=== PATIENT | female | born 1945 | race Caucasian/White ===

== ENCOUNTER 2017-05-15 08:08 | Inpatient (IN) | payer MEDICARE, MEDICAID ==
[2017-05-15 09:06] LABS: ADD MAN DIFF? NO
[2017-05-15 09:15] LABS: ADD UMIC YES; UR ASCORBIC ACID NEGATIVE (NEGATIVE); UR BILIRUBIN (Dip) NEGATIVE (NEGATIVE); UR BLOOD (Dip) NEGATIVE (NEGATIVE); UR CLARITY SLIGHTLY CLOUDY (CLEAR); UR COLOR AMBER (YELLOW); UR GLUCOSE (Dip) NEGATIVE (NEGATIVE); UR KETONES (Dip) NEGATIVE (NEGATIVE); UR LEUKOCYTE ESTERASE (Dip) TRACE Leu/ul (NEGATIVE); UR MUCUS MODERATE /HPF (NONE SEEN); UR NITRITE (Dip) NEGATIVE (NEGATIVE); UR RBC 4 /HPF (0-5); UR SPECIFIC GRAVITY (Dip) 1.021 (1.003-1.030); UR SQUAMOUS EPITHELIAL CELL MODERATE /HPF (FEW); UR TOTAL PROTEIN (Dip) NEGATIVE (NEGATIVE); UR UROBILINOGEN (Dip) 2+ mg/dL (NEGATIVE); UR WBC 3 /HPF (0-5)
[2017-05-15 09:17] LABS: ABNORMAL IP MESSAGE 1; BASOPHILS % 0.8 % (0.0-2.0); EOSINOPHILS # 0.1 10^3/ul (0.0-0.5); EOSINOPHILS % 2.3 % (0.0-7.0); HEMATOCRIT 42.1 % (37.0-47.0); HEMOGLOBIN 14.6 g/dl (12.0-16.0); LYMPHOCYTES # 2.1 10^3/ul (0.8-2.9); LYMPHOCYTES % 54.1 % (15.0-51.0); MEAN CORPUSCULAR HEMOGLOBIN 34.4 pg (29.0-33.0); MEAN CORPUSCULAR HGB CONC 34.7 g/dl (32.0-37.0); MEAN CORPUSCULAR VOLUME 99.3 fl (82.0-101.0); MEAN PLATELET VOLUME 11.9 fl (7.4-10.4); MONOCYTE # 0.3 10^3/ul (0.3-0.9); MONOCYTES % 8.5 % (0.0-11.0); NEUTROPHIL # 1.3 10^3/ul (1.6-7.5); NEUTROPHILS % 34.3 % (39.0-77.0); PLATELET COUNT 80 10^3/UL (140-415); RED BLOOD COUNT 4.24 10^6/ul (4.20-5.40); RED CELL DISTRIBUTION WIDTH 14.7 % (11.5-14.5)
[2017-05-15 09:17] LABS: WHITE BLOOD COUNT 3.9 10^3/ul (4.8-10.8)
[2017-05-15 09:22] LABS: POSITIVE DIFF @See below
[2017-05-15 09:30] LABS: ALANINE AMINOTRANSFERASE 456 IU/L (13-69); ALBUMIN 2.6 g/dl (3.3-4.9); ALBUMIN/GLOBULIN RATIO 0.57; ALKALINE PHOSPHATASE 177 IU/L (42-121); ANION GAP 11 (8-16); ASPARTATE AMINO TRANSFERASE 455 IU/L (15-46); BILIRUBIN,INDIRECT 1.9 mg/dl (0-1.1); BILIRUBIN,TOTAL 1.9 mg/dl (0.2-1.3); BLOOD UREA NITROGEN 9 mg/dl (7-20); CALCIUM 7.9 mg/dl (8.4-10.2); CARBON DIOXIDE 26 mmol/L (21-31); CHLORIDE 109 mmol/L (97-110); CREATININE 0.58 mg/dl (0.44-1.00); GLUCOSE 140 mg/dl (70-220); LIPASE 147 U/L (23-300); POTASSIUM 3.1 mmol/L (3.5-5.1); SODIUM 143 mmol/L (135-144); TOTAL PROTEIN 7.1 g/dl (6.1-8.1)
[2017-05-15 09:40] LABS: INR 1.95; PROTIME 22.7 Sec (11.9-14.9); PT RATIO 1.8
[2017-05-15 09:41] LABS: PARTIAL THROMBOPLASTIN TIME 44.3 Sec (25.0-35.0)
[2017-05-15 12:48] LABS: FLD RBC 0 /uL; FLD WBC 145 /cmm
[2017-05-15] MEDS ORDERED: ACETAMINOPHEN 325 MG TAB PO (13:00)
[2017-05-15] MEDS ORDERED: ONDANSETRON 4 MG INJ IV (13:00)
[2017-05-15 13:27] LABS: FLD TYPE ASCITES
[2017-05-15 13:27] LABS: FLD CLARITY CLEAR; FLD COLOR YELLOW
[2017-05-15 13:31] LABS: FLUID GLUCOSE 120 mg/dl; FLUID TYPE ASCITES FLUID
[2017-05-15 13:32] LABS: FLUID AMYLASE < 30 U/L; FLUID LD 200 U/L; FLUID TOTAL PROTEIN < 2.0 g/dl; FLUID TYPE ASCITES FLUID; FLUID TYPE ASCITIES FLUID
[2017-05-15 13:40] LABS: FLD MN% 90.3 %; FLD PMN% 9.7 %
[2017-05-15 14:56] LABS: HAAIG REFLEX REFLEX FILED
[2017-05-15] MEDS ORDERED: MAGNESIUM HYDROXIDE 30ML CUP PO (15:00)
[2017-05-15] MEDS ORDERED: BISACODYL 10 MG SUPP PR (15:00)
[2017-05-15] MEDS ORDERED: NACL 0.9% 3 ML SYG IV (15:00)
[2017-05-15] MEDS ORDERED: DOCUSATE SODIUM 100 MG CAP PO (15:00)
[2017-05-15 15:56] LABS: HEPATITIS B SURFACE ANTIGEN NEGATIVE (NEGATIVE)
[2017-05-15 16:14] LABS: HEPATITIS B CORE ANTIBODY NEGATIVE (NEGATIVE); HEPATITIS C VIRAL ANTIBODY NEGATIVE (NEGATIVE)
[2017-05-15 17:06] LABS: CARCINOEMBRYONIC ANTIGEN 2.2 ng/ml (0.0-5.0)
[2017-05-15 17:07] LABS: CANCER ANTIGEN 19-9 43.4 U/ml (0.0-37.0)
[2017-05-15] MEDS: POTASSIUM CHLORIDE (SR) 20 MEQ TAB PO (18:36)
[2017-05-15 19:09] LABS: MAGNESIUM 1.6 mg/dl (1.7-2.5)
[2017-05-16] MEDS: PANTOPRAZOLE 40 MG INJ IV (05:52)
[2017-05-16 05:57] LABS: ADD MAN DIFF? NO
[2017-05-16 06:09] LABS: WHITE BLOOD COUNT 4.5 10^3/ul (4.8-10.8)
[2017-05-16 06:09] LABS: ABNORMAL IP MESSAGE 1; BASOPHILS % 0.7 % (0.0-2.0); EOSINOPHILS # 0.1 10^3/ul (0.0-0.5); EOSINOPHILS % 2.7 % (0.0-7.0); HEMATOCRIT 36.5 % (37.0-47.0); HEMOGLOBIN 13.1 g/dl (12.0-16.0); LYMPHOCYTES # 2.1 10^3/ul (0.8-2.9); MEAN CORPUSCULAR HEMOGLOBIN 35.3 pg (29.0-33.0); MEAN CORPUSCULAR HGB CONC 35.9 g/dl (32.0-37.0); MEAN CORPUSCULAR VOLUME 98.4 fl (82.0-101.0); MEAN PLATELET VOLUME 12.1 fl (7.4-10.4); MONOCYTE # 0.5 10^3/ul (0.3-0.9); MONOCYTES % 10.7 % (0.0-11.0); NEUTROPHIL # 1.7 10^3/ul (1.6-7.5); NEUTROPHILS % 38.7 % (39.0-77.0); PLATELET COUNT 70 10^3/UL (140-415); RED BLOOD COUNT 3.71 10^6/ul (4.20-5.40); RED CELL DISTRIBUTION WIDTH 14.6 % (11.5-14.5)
[2017-05-16 06:28] LABS: ALANINE AMINOTRANSFERASE 366 IU/L (13-69); ALBUMIN 2.1 g/dl (3.3-4.9); ALBUMIN/GLOBULIN RATIO 0.53; ALKALINE PHOSPHATASE 116 IU/L (42-121); ANION GAP 10 (8-16); ASPARTATE AMINO TRANSFERASE 350 IU/L (15-46); BILIRUBIN,INDIRECT 1.5 mg/dl (0-1.1); BILIRUBIN,TOTAL 1.5 mg/dl (0.2-1.3); BLOOD UREA NITROGEN 9 mg/dl (7-20); CALCIUM 7.4 mg/dl (8.4-10.2); CARBON DIOXIDE 23 mmol/L (21-31); CHLORIDE 114 mmol/L (97-110); CHOL/HDL RATIO 2.3 RATIO; CHOLESTEROL 74 mg/dl (100-200); CREATININE 0.57 mg/dl (0.44-1.00); GLUCOSE 84 mg/dl (70-220); HDL CHOLESTEROL 32 mg/dl (33-92); LDL CHOLESTEROL,CALCULATED 33 mg/dl; MAGNESIUM 1.7 mg/dl (1.7-2.5); PHOSPHORUS 3.2 mg/dl (2.5-4.9); POTASSIUM 3.7 mmol/L (3.5-5.1); SODIUM 143 mmol/L (135-144); TRIGLYCERIDES 44 mg/dl (0-149)
[2017-05-16 06:47] LABS: POSITIVE DIFF @See below
[2017-05-16 07:40] LABS: HEMOGLOBIN A1C 4.9 % (0-5.9)
[2017-05-16 08:03] LABS: FREE THYROXINE INDEX (Calc) 3.31 ug/ml (0.65-3.89); T3 UPTAKE 41.9 % (23.5-40.5); T4 (THYROXINE) 7.9 ug/dl (5.5-11.0)
[2017-05-16 08:04] LABS: THYROID STIMULATING HORMONE 0.961 MIU/L (0.465-4.680)
[2017-05-16] MEDS ORDERED: FUROSEMIDE 20 MG INJ IV (09:00)
[2017-05-16 18:31] LABS: IRON 134 ug/dl (35-150)
[2017-05-16 18:41] LABS: % IRON SATURATION 66 % SAT (22-52); TOTAL IRON BINDING CAPACITY 202 ug/dl (241-421)
[2017-05-16] MEDS: ACETAMINOPHEN 325 MG TAB PO (18:59)
[2017-05-16] MEDS: SPIRONOLACTONE 25 MG TAB PO (18:59)
[2017-05-16] MEDS: IOHEXOL 300MG/ML 150 ML BTL (23:23)
[2017-05-16] MEDS: SOD CHLORIDE 0.9% 100 ML (23:23)
[2017-05-17] MEDS: PANTOPRAZOLE 40 MG INJ IV (05:17)
[2017-05-17] MEDS: SPIRONOLACTONE 25 MG TAB PO ×2 (05:17→17:44)
[2017-05-17] MEDS ORDERED: LORAZEPAM 2 MG INJ IV (07:30)
[2017-05-17] MEDS: LORAZEPAM 2 MG INJ IV (07:54)
[2017-05-17 12:31] LABS: ALANINE AMINOTRANSFERASE 370 IU/L (13-69); ALBUMIN 2.1 g/dl (3.3-4.9); ALBUMIN/GLOBULIN RATIO 0.56; ALKALINE PHOSPHATASE 107 IU/L (42-121); ANION GAP 10 (8-16); ASPARTATE AMINO TRANSFERASE 383 IU/L (15-46); BILIRUBIN,INDIRECT 1.8 mg/dl (0-1.1); BILIRUBIN,TOTAL 1.8 mg/dl (0.2-1.3); BLOOD UREA NITROGEN 12 mg/dl (7-20); CALCIUM 7.5 mg/dl (8.4-10.2); CARBON DIOXIDE 22 mmol/L (21-31); CHLORIDE 114 mmol/L (97-110); CREATININE 0.54 mg/dl (0.44-1.00); GLUCOSE 80 mg/dl (70-220); POTASSIUM 4.1 mmol/L (3.5-5.1); SODIUM 142 mmol/L (135-144); TOTAL PROTEIN 5.8 g/dl (6.1-8.1)
[2017-05-17] MEDS: FUROSEMIDE 40 MG TAB PO (15:07)
[2017-05-18] MEDS: SPIRONOLACTONE 25 MG TAB PO (05:41)
[2017-05-18] MEDS: PANTOPRAZOLE 40 MG INJ IV (05:43)
[2017-05-18 06:24] LABS: ALANINE AMINOTRANSFERASE 349 IU/L (13-69); ALBUMIN 2.1 g/dl (3.3-4.9); ALBUMIN/GLOBULIN RATIO 0.56; ALKALINE PHOSPHATASE 98 IU/L (42-121); ANION GAP 11 (8-16); ASPARTATE AMINO TRANSFERASE 340 IU/L (15-46); BILIRUBIN,INDIRECT 1.4 mg/dl (0-1.1); BILIRUBIN,TOTAL 1.4 mg/dl (0.2-1.3); BLOOD UREA NITROGEN 14 mg/dl (7-20); CALCIUM 7.5 mg/dl (8.4-10.2); CARBON DIOXIDE 22 mmol/L (21-31); CHLORIDE 112 mmol/L (97-110); CREATININE 0.65 mg/dl (0.44-1.00); GLUCOSE 75 mg/dl (70-220); SODIUM 141 mmol/L (135-144); TOTAL PROTEIN 5.8 g/dl (6.1-8.1)
[2017-05-18] MEDS: FUROSEMIDE 40 MG TAB PO (08:54)
[2017-05-18 14:07] LABS: SMOOTH MUSCLE AB SCREEN POSITIVE (NEGATIVE)
[2017-05-18 16:16] LABS: ALPHA 1 ANTITRYPSIN 119 mg/dL (83-199); CERULOPLASMIN 22 mg/dL (18-53)
[2017-05-18] MEDS: morphine 2 MG INJ IV (20:31)
[2017-05-18 20:43] LABS: ANA SCREEN POSITIVE (NEGATIVE)
[2017-05-18 22:06] LABS: ANA PATTERN HOMOGENEOUS
[2017-05-19] MEDS: SPIRONOLACTONE 25 MG TAB PO ×2 (06:00→18:21)
[2017-05-19] MEDS: PANTOPRAZOLE 40 MG INJ IV (06:20)
[2017-05-19 06:29] LABS: ALANINE AMINOTRANSFERASE 336 IU/L (13-69); ALBUMIN 2.2 g/dl (3.3-4.9); ALBUMIN/GLOBULIN RATIO 0.59; ALKALINE PHOSPHATASE 105 IU/L (42-121); ANION GAP 11 (8-16); ASPARTATE AMINO TRANSFERASE 322 IU/L (15-46); BILIRUBIN,INDIRECT 1.4 mg/dl (0-1.1); BILIRUBIN,TOTAL 1.4 mg/dl (0.2-1.3); BLOOD UREA NITROGEN 13 mg/dl (7-20); CALCIUM 7.5 mg/dl (8.4-10.2); CARBON DIOXIDE 24 mmol/L (21-31); CHLORIDE 110 mmol/L (97-110); CREATININE 0.63 mg/dl (0.44-1.00); GLUCOSE 86 mg/dl (70-220); SODIUM 141 mmol/L (135-144); TOTAL PROTEIN 5.9 g/dl (6.1-8.1)
[2017-05-19] MEDS: FUROSEMIDE 40 MG TAB PO (09:41)
[2017-05-20] MEDS: PANTOPRAZOLE 40 MG INJ IV (05:39)
[2017-05-20] MEDS: SPIRONOLACTONE 25 MG TAB PO ×2 (05:43→17:40)
[2017-05-20 06:53] LABS: PARTIAL THROMBOPLASTIN TIME 43.6 Sec (25.0-35.0)
[2017-05-20 07:33] LABS: ALANINE AMINOTRANSFERASE 331 IU/L (13-69); ALBUMIN 2.2 g/dl (3.3-4.9); ALBUMIN/GLOBULIN RATIO 0.57; ALKALINE PHOSPHATASE 120 IU/L (42-121); ANION GAP 11 (8-16); ASPARTATE AMINO TRANSFERASE 295 IU/L (15-46); BILIRUBIN,INDIRECT 1.5 mg/dl (0-1.1); BILIRUBIN,TOTAL 1.5 mg/dl (0.2-1.3); BLOOD UREA NITROGEN 8 mg/dl (7-20); CALCIUM 7.7 mg/dl (8.4-10.2); CARBON DIOXIDE 25 mmol/L (21-31); CHLORIDE 109 mmol/L (97-110); GLUCOSE 79 mg/dl (70-220); POTASSIUM 3.6 mmol/L (3.5-5.1); SODIUM 141 mmol/L (135-144)
[2017-05-20 08:02] LABS: 50/50 PTT IMMED 34.3 Sec
[2017-05-20 08:16] LABS: CHOLESTEROL 81 mg/dl (100-200)
[2017-05-20 08:16] LABS: CHOL/HDL RATIO 2.3 RATIO; HDL CHOLESTEROL 34 mg/dl (33-92); LDL CHOLESTEROL,CALCULATED 37 mg/dl; TRIGLYCERIDES 48 mg/dl (0-149)
[2017-05-20] MEDS: FUROSEMIDE 40 MG TAB PO (08:31)
[2017-05-20 17:33] LABS: IMMUNOGLOBULIN A 672 mg/dl (70-400); IMMUNOGLOBULIN G 2362 mg/dl (700-1600)
[2017-05-20 17:46] LABS: IMMUNOGLOBULIN M 137 mg/dl (40-230)
[2017-05-21 05:32] LABS: ALANINE AMINOTRANSFERASE 347 IU/L (13-69); ALBUMIN 2.1 g/dl (3.3-4.9); ALBUMIN/GLOBULIN RATIO 0.52; ALKALINE PHOSPHATASE 105 IU/L (42-121); ANION GAP 11 (8-16); ASPARTATE AMINO TRANSFERASE 304 IU/L (15-46); BILIRUBIN,INDIRECT 1.7 mg/dl (0-1.1); BILIRUBIN,TOTAL 1.7 mg/dl (0.2-1.3); BLOOD UREA NITROGEN 8 mg/dl (7-20); CALCIUM 7.9 mg/dl (8.4-10.2); CARBON DIOXIDE 25 mmol/L (21-31); CHLORIDE 108 mmol/L (97-110); CREATININE 0.63 mg/dl (0.44-1.00); GLUCOSE 80 mg/dl (70-220); POTASSIUM 3.7 mmol/L (3.5-5.1); SODIUM 140 mmol/L (135-144); TOTAL PROTEIN 6.1 g/dl (6.1-8.1)
[2017-05-21] MEDS: PANTOPRAZOLE 40 MG INJ IV (05:42)
[2017-05-21] MEDS: SPIRONOLACTONE 25 MG TAB PO ×2 (05:42→17:16)
[2017-05-21] MEDS: FUROSEMIDE 40 MG TAB PO (08:27)
[2017-05-21] MEDS: ONDANSETRON 4 MG INJ IV (19:41)
[2017-05-22] MEDS: PANTOPRAZOLE 40 MG INJ IV (05:07)
[2017-05-22] MEDS: SPIRONOLACTONE 25 MG TAB PO ×2 (05:09→18:36)
[2017-05-22 06:50] LABS: ADD MAN DIFF? NO
[2017-05-22 06:54] LABS: WHITE BLOOD COUNT 4.1 10^3/ul (4.8-10.8)
[2017-05-22 06:54] LABS: ABNORMAL IP MESSAGE 1; BASOPHILS % 0.7 % (0.0-2.0); EOSINOPHILS # 0.1 10^3/ul (0.0-0.5); EOSINOPHILS % 2.7 % (0.0-7.0); HEMATOCRIT 37.3 % (37.0-47.0); HEMOGLOBIN 12.9 g/dl (12.0-16.0); LYMPHOCYTES # 1.9 10^3/ul (0.8-2.9); LYMPHOCYTES % 46.7 % (15.0-51.0); MEAN CORPUSCULAR HEMOGLOBIN 34.5 pg (29.0-33.0); MEAN CORPUSCULAR HGB CONC 34.6 g/dl (32.0-37.0); MEAN CORPUSCULAR VOLUME 99.7 fl (82.0-101.0); MEAN PLATELET VOLUME 12.2 fl (7.4-10.4); MONOCYTE # 0.4 10^3/ul (0.3-0.9); MONOCYTES % 8.8 % (0.0-11.0); NEUTROPHIL # 1.7 10^3/ul (1.6-7.5); NEUTROPHILS % 41.1 % (39.0-77.0); PLATELET COUNT 83 10^3/UL (140-415); RED BLOOD COUNT 3.74 10^6/ul (4.20-5.40); RED CELL DISTRIBUTION WIDTH 14.7 % (11.5-14.5)
[2017-05-22 07:01] LABS: POSITIVE DIFF @See below
[2017-05-22 07:20] LABS: ALANINE AMINOTRANSFERASE 331 IU/L (13-69); ALBUMIN 2.1 g/dl (3.3-4.9); ALBUMIN/GLOBULIN RATIO 0.52; ALKALINE PHOSPHATASE 103 IU/L (42-121); ANION GAP 8 (8-16); ASPARTATE AMINO TRANSFERASE 291 IU/L (15-46); BILIRUBIN,INDIRECT 1.4 mg/dl (0-1.1); BILIRUBIN,TOTAL 1.4 mg/dl (0.2-1.3); BLOOD UREA NITROGEN 11 mg/dl (7-20); CARBON DIOXIDE 22 mmol/L (21-31); CHLORIDE 109 mmol/L (97-110); CREATININE 0.71 mg/dl (0.44-1.00); GLUCOSE 108 mg/dl (70-220); SODIUM 135 mmol/L (135-144); TOTAL PROTEIN 6.1 g/dl (6.1-8.1)
[2017-05-22 07:33] LABS: INR 2.17; PROTIME 24.7 Sec (11.9-14.9); PT RATIO 1.9
[2017-05-22 07:34] LABS: PARTIAL THROMBOPLASTIN TIME 44.9 Sec (25.0-35.0)
[2017-05-22 07:40] LABS: AMMONIA 116 umol/l (9-30)
[2017-05-22 07:44] LABS: MAGNESIUM 1.6 mg/dl (1.7-2.5)
[2017-05-22] MEDS: FUROSEMIDE 40 MG TAB PO (11:07)
[2017-05-22] MEDS: MAGNESIUM SULFATE 2 GM/50 ML 50 ML IVPB (20:55)
[2017-05-22 22:14] LABS: INR 1.53; PROTIME 18.7 Sec (11.9-14.9); PT RATIO 1.5
[2017-05-23] MEDS: SPIRONOLACTONE 25 MG TAB PO ×2 (05:42→18:00)
[2017-05-23] MEDS: PANTOPRAZOLE 40 MG INJ IV (05:43)
[2017-05-23 09:19] LABS: INR 1.73; PROTIME 20.6 Sec (11.9-14.9); PT RATIO 1.6
[2017-05-23] MEDS: FUROSEMIDE 40 MG TAB PO (09:58)
[2017-05-23 15:37] LABS: TYPE AND SCREEN 1 1
[2017-05-23] MEDS: LIDOCAINE 1% (MDV) 20 ML INJ (15:37)
[2017-05-24] MEDS: SPIRONOLACTONE 25 MG TAB PO ×2 (05:26→18:12)
[2017-05-24] MEDS: PANTOPRAZOLE 40 MG INJ IV (05:27)
[2017-05-24] MEDS: FUROSEMIDE 40 MG TAB PO (09:00)
[2017-05-24] MEDS: ONDANSETRON 4 MG INJ IV (13:48)
[2017-05-25 05:53] LABS: ADD MAN DIFF? NO
[2017-05-25 05:59] LABS: ABNORMAL IP MESSAGE 1; BASOPHILS % 0.4 % (0.0-2.0); EOSINOPHILS # 0.1 10^3/ul (0.0-0.5); EOSINOPHILS % 1.6 % (0.0-7.0); HEMATOCRIT 38.5 % (37.0-47.0); HEMOGLOBIN 13.6 g/dl (12.0-16.0); LYMPHOCYTES # 2.4 10^3/ul (0.8-2.9); LYMPHOCYTES % 49.4 % (15.0-51.0); MEAN CORPUSCULAR HEMOGLOBIN 34.8 pg (29.0-33.0); MEAN CORPUSCULAR HGB CONC 35.3 g/dl (32.0-37.0); MEAN CORPUSCULAR VOLUME 98.5 fl (82.0-101.0); MEAN PLATELET VOLUME 12.2 fl (7.4-10.4); MONOCYTE # 0.4 10^3/ul (0.3-0.9); MONOCYTES % 8.3 % (0.0-11.0); NEUTROPHILS % 40.3 % (39.0-77.0); PLATELET COUNT 76 10^3/UL (140-415); RED BLOOD COUNT 3.91 10^6/ul (4.20-5.40); RED CELL DISTRIBUTION WIDTH 14.5 % (11.5-14.5)
[2017-05-25 05:59] LABS: WHITE BLOOD COUNT 4.9 10^3/ul (4.8-10.8)
[2017-05-25] MEDS: PANTOPRAZOLE 40 MG INJ IV (06:00)
[2017-05-25 06:05] LABS: POSITIVE DIFF @See below
[2017-05-25 06:21] LABS: ALANINE AMINOTRANSFERASE 343 IU/L (13-69); ALBUMIN 3.2 g/dl (3.3-4.9); ALBUMIN/GLOBULIN RATIO 0.69; ALKALINE PHOSPHATASE 124 IU/L (42-121); ANION GAP 13 (8-16); ASPARTATE AMINO TRANSFERASE 295 IU/L (15-46); BILIRUBIN,INDIRECT 1.8 mg/dl (0-1.1); BILIRUBIN,TOTAL 1.8 mg/dl (0.2-1.3); BLOOD UREA NITROGEN 11 mg/dl (7-20); CARBON DIOXIDE 23 mmol/L (21-31); CHLORIDE 108 mmol/L (97-110); CREATININE 0.75 mg/dl (0.44-1.00); GLUCOSE 92 mg/dl (70-220); MAGNESIUM 1.6 mg/dl (1.7-2.5); PHOSPHORUS 3.4 mg/dl (2.5-4.9); POTASSIUM 3.8 mmol/L (3.5-5.1); SODIUM 140 mmol/L (135-144); TOTAL PROTEIN 7.8 g/dl (6.1-8.1)
[2017-05-25] MEDS: SPIRONOLACTONE 25 MG TAB PO ×2 (06:22→17:45)
[2017-05-25] MEDS: FUROSEMIDE 40 MG TAB PO (09:00)
[2017-05-25] MEDS: ONDANSETRON 4 MG INJ IV (22:59)
[2017-05-26] MEDS: PANTOPRAZOLE 40 MG INJ IV (06:13)
[2017-05-26] MEDS: SPIRONOLACTONE 25 MG TAB PO ×2 (06:14→17:04)
[2017-05-26] MEDS: FUROSEMIDE 40 MG TAB PO (08:12)
[2017-05-26] MEDS: ONDANSETRON 4 MG INJ IV ×3 (08:13→20:30)
[2017-05-27] MEDS: PANTOPRAZOLE (EC) 40 MG TAB PO (05:40)
[2017-05-27] MEDS: SPIRONOLACTONE 25 MG TAB PO ×2 (05:40→17:51)
[2017-05-27] MEDS: ONDANSETRON 4 MG INJ IV ×3 (05:42→17:51)
[2017-05-27] MEDS: FUROSEMIDE 40 MG TAB PO (09:17)
[2017-05-28] MEDS: PANTOPRAZOLE (EC) 40 MG TAB PO (05:38)
[2017-05-28] MEDS: SPIRONOLACTONE 25 MG TAB PO ×2 (05:39→17:38)
[2017-05-28 06:33] LABS: ADD MAN DIFF? NO
[2017-05-28 06:36] LABS: ABNORMAL IP MESSAGE 1; BASOPHIL # 0.1 10^3/ul (0.0-0.1); BASOPHILS % 0.8 % (0.0-2.0); EOSINOPHILS % 0.5 % (0.0-7.0); HEMATOCRIT 42.3 % (37.0-47.0); HEMOGLOBIN 15.4 g/dl (12.0-16.0); LYMPHOCYTES # 2.3 10^3/ul (0.8-2.9); LYMPHOCYTES % 35.2 % (15.0-51.0); MEAN CORPUSCULAR HEMOGLOBIN 35.4 pg (29.0-33.0); MEAN CORPUSCULAR HGB CONC 36.4 g/dl (32.0-37.0); MEAN CORPUSCULAR VOLUME 97.2 fl (82.0-101.0); MEAN PLATELET VOLUME 11.5 fl (7.4-10.4); MONOCYTE # 0.5 10^3/ul (0.3-0.9); MONOCYTES % 7.4 % (0.0-11.0); NEUTROPHIL # 3.7 10^3/ul (1.6-7.5); NEUTROPHILS % 55.9 % (39.0-77.0); RED BLOOD COUNT 4.35 10^6/ul (4.20-5.40); RED CELL DISTRIBUTION WIDTH 14.6 % (11.5-14.5)
[2017-05-28 06:36] LABS: WHITE BLOOD COUNT 6.6 10^3/ul (4.8-10.8)
[2017-05-28 06:51] LABS: PLATELET COUNT 99 10^3/UL (140-415); POSITIVE DIFF @See below
[2017-05-28 07:02] LABS: INR 1.98; PT RATIO 1.8
[2017-05-28 07:03] LABS: PARTIAL THROMBOPLASTIN TIME 44.4 Sec (25.0-35.0)
[2017-05-28 07:12] LABS: ALANINE AMINOTRANSFERASE 460 IU/L (13-69); ALBUMIN 3.6 g/dl (3.3-4.9); ALBUMIN/GLOBULIN RATIO 0.67; ALKALINE PHOSPHATASE 140 IU/L (42-121); ANION GAP 13 (8-16); ASPARTATE AMINO TRANSFERASE 364 IU/L (15-46); BILIRUBIN,INDIRECT 1.8 mg/dl (0-1.1); BILIRUBIN,TOTAL 1.8 mg/dl (0.2-1.3); BLOOD UREA NITROGEN 12 mg/dl (7-20); CALCIUM 9.4 mg/dl (8.4-10.2); CARBON DIOXIDE 22 mmol/L (21-31); CHLORIDE 104 mmol/L (97-110); CREATININE 0.96 mg/dl (0.44-1.00); GLUCOSE 121 mg/dl (70-220); POTASSIUM 4.4 mmol/L (3.5-5.1); SODIUM 135 mmol/L (135-144); TOTAL PROTEIN 8.9 g/dl (6.1-8.1)
[2017-05-28 07:16] LABS: MAGNESIUM 1.6 mg/dl (1.7-2.5)
[2017-05-28 07:16] LABS: PHOSPHORUS 4.3 mg/dl (2.5-4.9)
[2017-05-28] MEDS: FUROSEMIDE 40 MG TAB PO (08:37)
[2017-05-28] MEDS: predniSONE 20 MG TAB PO (13:08)
[2017-05-28 20:13] LABS: AMMONIA 126 umol/l (9-30)
[2017-05-28] MEDS: LACTULOSE 30ML CUP PO (23:53)
[2017-05-29 01:57] LABS: LACTIC ACID 2.7 mmol/L (0.5-2.0)
[2017-05-29] MEDS: PANTOPRAZOLE (EC) 40 MG TAB PO (05:51)
[2017-05-29] MEDS: LACTULOSE 30ML CUP PO ×2 (05:51→13:46)
[2017-05-29] MEDS: SPIRONOLACTONE 25 MG TAB PO ×2 (05:52→18:00)
[2017-05-29] MEDS ORDERED: predniSONE 20 MG TAB PO (09:00)
[2017-05-29] MEDS: predniSONE 20 MG TAB PO (10:30)
[2017-05-29] MEDS: FUROSEMIDE 40 MG TAB PO (10:52)
[2017-05-29 11:28] LABS: ALANINE AMINOTRANSFERASE 395 IU/L (13-69); ALBUMIN 3.7 g/dl (3.3-4.9); ALBUMIN/GLOBULIN RATIO 0.71; ALKALINE PHOSPHATASE 131 IU/L (42-121); ANION GAP 19 (8-16); ASPARTATE AMINO TRANSFERASE 230 IU/L (15-46); BILIRUBIN,INDIRECT 2.2 mg/dl (0-1.1); BILIRUBIN,TOTAL 2.2 mg/dl (0.2-1.3); BLOOD UREA NITROGEN 20 mg/dl (7-20); CALCIUM 9.2 mg/dl (8.4-10.2); CARBON DIOXIDE 19 mmol/L (21-31); CHLORIDE 106 mmol/L (97-110); CREATININE 0.89 mg/dl (0.44-1.00); GLUCOSE 157 mg/dl (70-220); POTASSIUM 4.7 mmol/L (3.5-5.1); SODIUM 139 mmol/L (135-144); TOTAL PROTEIN 8.9 g/dl (6.1-8.1)
[2017-05-29 12:03] LABS: LACTIC ACID 3.3 mmol/L (0.5-2.0)
[2017-05-29] MEDS: SOD CHLORIDE 0.9% 1,000 ML IV ×2 (13:49→22:07)
[2017-05-29 13:55] LABS: ADD MAN DIFF? NO
[2017-05-29 13:58] LABS: WHITE BLOOD COUNT 8.9 10^3/ul (4.8-10.8)
[2017-05-29 13:58] LABS: BASOPHILS % 0.2 % (0.0-2.0); HEMATOCRIT 43.6 % (37.0-47.0); HEMOGLOBIN 15.5 g/dl (12.0-16.0); LYMPHOCYTES # 1.5 10^3/ul (0.8-2.9); LYMPHOCYTES % 16.9 % (15.0-51.0); MEAN CORPUSCULAR HGB CONC 35.6 g/dl (32.0-37.0); MEAN CORPUSCULAR VOLUME 98.4 fl (82.0-101.0); MEAN PLATELET VOLUME 10.8 fl (7.4-10.4); MONOCYTE # 0.8 10^3/ul (0.3-0.9); NEUTROPHIL # 6.5 10^3/ul (1.6-7.5); NEUTROPHILS % 73.7 % (39.0-77.0); PLATELET COUNT 104 10^3/UL (140-415); RED BLOOD COUNT 4.43 10^6/ul (4.20-5.40)
[2017-05-29 14:00] LABS: POSITIVE DIFF @See below
[2017-05-29 14:21] LABS: AMMONIA 151 umol/l (9-30)
[2017-05-29 14:23] LABS: ALANINE AMINOTRANSFERASE 385 IU/L (13-69); ALBUMIN 3.6 g/dl (3.3-4.9); ALBUMIN/GLOBULIN RATIO 0.72; ALKALINE PHOSPHATASE 126 IU/L (42-121); ANION GAP 18 (8-16); ASPARTATE AMINO TRANSFERASE 215 IU/L (15-46); BILIRUBIN,INDIRECT 1.9 mg/dl (0-1.1); BILIRUBIN,TOTAL 1.9 mg/dl (0.2-1.3); BLOOD UREA NITROGEN 21 mg/dl (7-20); CALCIUM 9.2 mg/dl (8.4-10.2); CARBON DIOXIDE 20 mmol/L (21-31); CHLORIDE 105 mmol/L (97-110); CREATININE 0.87 mg/dl (0.44-1.00); GLUCOSE 161 mg/dl (70-220); POTASSIUM 4.8 mmol/L (3.5-5.1); SODIUM 138 mmol/L (135-144); TOTAL PROTEIN 8.6 g/dl (6.1-8.1)
[2017-05-29 15:12] LABS: Allen Test ACCEPTAB; Arterial Base Excess -1.1 mmol/L (-3.0-3); Arterial COHb 0.2 % (0.0-3.0); Arterial Fraction of Oxyhgb 96.5 % (93.0-99.0); Arterial HCO3 21.1 mmol/L (22.0-26.0); Arterial MetHb 0.3 % (0.0-1.5); Arterial Total Hemglobin 16.3 g/dl (12.0-18.0); Arterial pCO2 29.2 mmhg (35-45); MODE ROOM AIR; Site Left Radial
[2017-05-29] MEDS: CEFEPIME 2GM/50 ML (PMX) 50 ML IVPB ×2 (15:12→22:11)
[2017-05-29] MEDS: SOD CHLORIDE 0.9% 500 ML IV (15:56)
[2017-05-29] MEDS: SOD CHLORIDE 0.9% 1,900 ML IV (16:14)
[2017-05-29] MEDS: LACTULOSE ENEMA 1,000 ML BTL PR ×3 (17:02→23:53)
[2017-05-29] MEDS: RIFAXIMIN 550 MG TAB PO (22:11)
[2017-05-30] MEDS: CEFEPIME 2GM/50 ML (PMX) 50 ML IVPB ×3 (06:02→21:38)
[2017-05-30] MEDS: PANTOPRAZOLE (EC) 40 MG TAB PO (06:03)
[2017-05-30] MEDS: SPIRONOLACTONE 25 MG TAB PO ×2 (06:03→17:04)
[2017-05-30] MEDS: LACTULOSE ENEMA 1,000 ML BTL PR ×3 (06:13→17:04)
[2017-05-30 07:08] LABS: ALANINE AMINOTRANSFERASE 316 IU/L (13-69); ALBUMIN 3.3 g/dl (3.3-4.9); ALBUMIN/GLOBULIN RATIO 0.66; ALKALINE PHOSPHATASE 124 IU/L (42-121); ANION GAP 14 (8-16); ASPARTATE AMINO TRANSFERASE 139 IU/L (15-46); BILIRUBIN,INDIRECT 2.1 mg/dl (0-1.1); BILIRUBIN,TOTAL 2.1 mg/dl (0.2-1.3); BLOOD UREA NITROGEN 16 mg/dl (7-20); CALCIUM 8.7 mg/dl (8.4-10.2); CARBON DIOXIDE 18 mmol/L (21-31); CHLORIDE 112 mmol/L (97-110); CREATININE 0.73 mg/dl (0.44-1.00); GLUCOSE 104 mg/dl (70-220); POTASSIUM 4.1 mmol/L (3.5-5.1); SODIUM 140 mmol/L (135-144); TOTAL PROTEIN 8.3 g/dl (6.1-8.1)
[2017-05-30] MEDS: FUROSEMIDE 40 MG TAB PO (08:55)
[2017-05-30] MEDS: SOD CHLORIDE 0.9% 1,000 ML IV ×3 (08:55→21:39)
[2017-05-30] MEDS: RIFAXIMIN 550 MG TAB PO ×2 (08:55→21:38)
[2017-05-30 11:41] LABS: LACTIC ACID 2.9 mmol/L (0.5-2.0)
[2017-05-30 11:43] LABS: AMMONIA 43 umol/l (9-30)
[2017-05-31] MEDS: LACTULOSE ENEMA 1,000 ML BTL PR ×2 (01:13→06:24)
[2017-05-31] MEDS: CEFEPIME 2GM/50 ML (PMX) 50 ML IVPB ×3 (06:22→21:40)
[2017-05-31] MEDS: PANTOPRAZOLE (EC) 40 MG TAB PO (06:22)
[2017-05-31] MEDS: SPIRONOLACTONE 25 MG TAB PO ×2 (06:24→17:15)
[2017-05-31 06:49] LABS: ALANINE AMINOTRANSFERASE 228 IU/L (13-69); ALBUMIN 2.6 g/dl (3.3-4.9); ALBUMIN/GLOBULIN RATIO 0.63; ALKALINE PHOSPHATASE 92 IU/L (42-121); ANION GAP 14 (8-16); ASPARTATE AMINO TRANSFERASE 103 IU/L (15-46); BILIRUBIN,INDIRECT 2.5 mg/dl (0-1.1); BILIRUBIN,TOTAL 2.5 mg/dl (0.2-1.3); BLOOD UREA NITROGEN 9 mg/dl (7-20); CALCIUM 7.5 mg/dl (8.4-10.2); CARBON DIOXIDE 19 mmol/L (21-31); CHLORIDE 102 mmol/L (97-110); GLUCOSE 137 mg/dl (70-220); POTASSIUM 4.8 mmol/L (3.5-5.1); SODIUM 130 mmol/L (135-144); TOTAL PROTEIN 6.7 g/dl (6.1-8.1)
[2017-05-31] MEDS: FUROSEMIDE 40 MG TAB PO (08:32)
[2017-05-31] MEDS: RIFAXIMIN 550 MG TAB PO ×2 (08:32→21:40)
[2017-05-31] MEDS: LACTULOSE 30ML CUP PO ×3 (10:55→17:14)
[2017-05-31 11:35] LABS: ADD MAN DIFF? NO
[2017-05-31 11:41] LABS: ABNORMAL IP MESSAGE 1; BASOPHILS % 0.3 % (0.0-2.0); EOSINOPHILS % 0.5 % (0.0-7.0); HEMATOCRIT 38.4 % (37.0-47.0); HEMOGLOBIN 13.6 g/dl (12.0-16.0); LYMPHOCYTES # 1.5 10^3/ul (0.8-2.9); LYMPHOCYTES % 24.8 % (15.0-51.0); MEAN CORPUSCULAR HEMOGLOBIN 35.1 pg (29.0-33.0); MEAN CORPUSCULAR HGB CONC 35.4 g/dl (32.0-37.0); MEAN CORPUSCULAR VOLUME 99.2 fl (82.0-101.0); MEAN PLATELET VOLUME 11.8 fl (7.4-10.4); MONOCYTE # 0.9 10^3/ul (0.3-0.9); MONOCYTES % 14.1 % (0.0-11.0); NEUTROPHIL # 3.6 10^3/ul (1.6-7.5); PLATELET COUNT 93 10^3/UL (140-415); RED BLOOD COUNT 3.87 10^6/ul (4.20-5.40); RED CELL DISTRIBUTION WIDTH 14.7 % (11.5-14.5)
[2017-05-31 11:45] LABS: POSITIVE DIFF @See below
[2017-05-31 12:17] LABS: AMMONIA 63 umol/l (9-30)
[2017-05-31] MEDS: SOD CHLORIDE 0.9% 1,000 ML IV ×2 (13:13→15:13)
[2017-06-01] MEDS: LACTULOSE 30ML CUP PO ×4 (00:23→18:12)
[2017-06-01] MEDS: SOD CHLORIDE 0.9% 1,000 ML IV ×2 (00:23→18:11)
[2017-06-01] MEDS: PANTOPRAZOLE (EC) 40 MG TAB PO (06:01)
[2017-06-01] MEDS: CEFEPIME 2GM/50 ML (PMX) 50 ML IVPB ×3 (06:01→22:24)
[2017-06-01] MEDS: SPIRONOLACTONE 25 MG TAB PO ×2 (06:01→18:12)
[2017-06-01 08:26] LABS: ALANINE AMINOTRANSFERASE 215 IU/L (13-69); ALBUMIN 2.6 g/dl (3.3-4.9); ALBUMIN/GLOBULIN RATIO 0.59; ALKALINE PHOSPHATASE 123 IU/L (42-121); ANION GAP 7 (8-16); ASPARTATE AMINO TRANSFERASE 115 IU/L (15-46); BILIRUBIN,INDIRECT 2.6 mg/dl (0-1.1); BILIRUBIN,TOTAL 2.6 mg/dl (0.2-1.3); BLOOD UREA NITROGEN 6 mg/dl (7-20); CARBON DIOXIDE 22 mmol/L (21-31); CHLORIDE 102 mmol/L (97-110); CREATININE 0.54 mg/dl (0.44-1.00); GLUCOSE 97 mg/dl (70-220); POTASSIUM 4.4 mmol/L (3.5-5.1); SODIUM 127 mmol/L (135-144)
[2017-06-01] MEDS: RIFAXIMIN 550 MG TAB PO ×2 (08:43→22:23)
[2017-06-01] MEDS: FUROSEMIDE 40 MG TAB PO (08:43)
[2017-06-01] MEDS: SODIUM CHLORIDE 1 GM TAB PO ×3 (10:43→22:23)
[2017-06-01 11:52] LABS: AMMONIA 49 umol/l (9-30)
[2017-06-01] MEDS: ONDANSETRON 4 MG INJ IV ×2 (12:21→18:14)
[2017-06-01] MEDS: METOCLOPRAMIDE 5 MG TAB PO (14:25)
[2017-06-01] MEDS ORDERED: PROCHLORPERAZINE 10 MG INJ IV (15:00)
[2017-06-01] MEDS: PROCHLORPERAZINE 10 MG INJ IV (22:24)
[2017-06-01] MEDS ORDERED: ONDANSETRON INJ 8 MG in SOD CHLORIDE 0.9% 50 ML IV (23:30)
[2017-06-01] MEDS ORDERED: TRIMETHOBENZAMIDE 100 MG/ML VIAL IM (23:30)
[2017-06-02] MEDS: LACTULOSE 30ML CUP PO ×4 (00:24→17:41)
[2017-06-02] MEDS: PANTOPRAZOLE (EC) 40 MG TAB PO (05:52)
[2017-06-02] MEDS: SPIRONOLACTONE 25 MG TAB PO ×2 (05:53→17:41)
[2017-06-02] MEDS: CEFEPIME 2GM/50 ML (PMX) 50 ML IVPB ×3 (05:53→21:47)
[2017-06-02 06:16] LABS: ALANINE AMINOTRANSFERASE 196 IU/L (13-69); ALBUMIN 2.4 g/dl (3.3-4.9); ALBUMIN/GLOBULIN RATIO 0.53; ALKALINE PHOSPHATASE 103 IU/L (42-121); ANION GAP 10 (8-16); ASPARTATE AMINO TRANSFERASE 107 IU/L (15-46); BILIRUBIN,INDIRECT 2.7 mg/dl (0-1.1); BILIRUBIN,TOTAL 2.7 mg/dl (0.2-1.3); BLOOD UREA NITROGEN 7 mg/dl (7-20); CARBON DIOXIDE 20 mmol/L (21-31); CHLORIDE 107 mmol/L (97-110); CREATININE 0.57 mg/dl (0.44-1.00); GLUCOSE 159 mg/dl (70-220); POTASSIUM 4.4 mmol/L (3.5-5.1); SODIUM 133 mmol/L (135-144); TOTAL PROTEIN 6.9 g/dl (6.1-8.1)
[2017-06-02] MEDS: SODIUM CHLORIDE 1 GM TAB PO ×3 (09:00→21:48)
[2017-06-02] MEDS: RIFAXIMIN 550 MG TAB PO ×2 (09:37→21:48)
[2017-06-02] MEDS: PROCHLORPERAZINE 10 MG INJ IV ×2 (09:38→21:48)
[2017-06-02] MEDS: FUROSEMIDE 40 MG TAB PO (09:38)
[2017-06-02] MEDS: SOD CHLORIDE 0.9% 1,000 ML IV ×2 (09:44→23:42)
[2017-06-03] MEDS: LACTULOSE 30ML CUP PO ×5 (00:49→23:39)
[2017-06-03] MEDS: SOD CHLORIDE 0.9% 1,000 ML IV ×2 (02:29→18:23)
[2017-06-03] MEDS: SPIRONOLACTONE 25 MG TAB PO ×2 (05:50→18:23)
[2017-06-03] MEDS: CEFEPIME 2GM/50 ML (PMX) 50 ML IVPB ×3 (05:50→21:57)
[2017-06-03] MEDS: PANTOPRAZOLE (EC) 40 MG TAB PO (05:51)
[2017-06-03 06:41] LABS: AMMONIA 48 umol/l (9-30)
[2017-06-03 06:56] LABS: ALANINE AMINOTRANSFERASE 168 IU/L (13-69); ALBUMIN 2.2 g/dl (3.3-4.9); ALBUMIN/GLOBULIN RATIO 0.56; ALKALINE PHOSPHATASE 95 IU/L (42-121); ANION GAP 8 (8-16); ASPARTATE AMINO TRANSFERASE 102 IU/L (15-46); BILIRUBIN,INDIRECT 1.6 mg/dl (0-1.1); BILIRUBIN,TOTAL 1.6 mg/dl (0.2-1.3); BLOOD UREA NITROGEN 7 mg/dl (7-20); CALCIUM 7.7 mg/dl (8.4-10.2); CARBON DIOXIDE 22 mmol/L (21-31); CHLORIDE 108 mmol/L (97-110); CREATININE 0.59 mg/dl (0.44-1.00); GLUCOSE 109 mg/dl (70-220); POTASSIUM 4.3 mmol/L (3.5-5.1); SODIUM 134 mmol/L (135-144); TOTAL PROTEIN 6.1 g/dl (6.1-8.1)
[2017-06-03] MEDS: SODIUM CHLORIDE 1 GM TAB PO ×4 (09:00→20:57)
[2017-06-03] MEDS: PROCHLORPERAZINE 10 MG INJ IV ×2 (11:11→20:57)
[2017-06-03] MEDS: RIFAXIMIN 550 MG TAB PO ×2 (11:12→20:57)
[2017-06-03] MEDS: FUROSEMIDE 40 MG TAB PO (11:16)
[2017-06-04] MEDS: CEFEPIME 2GM/50 ML (PMX) 50 ML IVPB ×2 (05:44→14:17)
[2017-06-04] MEDS: LACTULOSE 30ML CUP PO ×3 (05:45→19:17)
[2017-06-04] MEDS: PANTOPRAZOLE (EC) 40 MG TAB PO (05:45)
[2017-06-04] MEDS: SPIRONOLACTONE 25 MG TAB PO ×2 (05:45→19:18)
[2017-06-04 06:19] LABS: ADD MAN DIFF? NO
[2017-06-04 06:41] LABS: ABNORMAL IP MESSAGE 1; BASOPHILS % 0.8 % (0.0-2.0); EOSINOPHILS # 0.1 10^3/ul (0.0-0.5); EOSINOPHILS % 2.4 % (0.0-7.0); HEMATOCRIT 35.1 % (37.0-47.0); HEMOGLOBIN 12.8 g/dl (12.0-16.0); LYMPHOCYTES # 1.4 10^3/ul (0.8-2.9); LYMPHOCYTES % 25.6 % (15.0-51.0); MEAN CORPUSCULAR HEMOGLOBIN 35.5 pg (29.0-33.0); MEAN CORPUSCULAR HGB CONC 36.5 g/dl (32.0-37.0); MEAN CORPUSCULAR VOLUME 97.2 fl (82.0-101.0); MEAN PLATELET VOLUME 11.6 fl (7.4-10.4); MONOCYTE # 0.7 10^3/ul (0.3-0.9); MONOCYTES % 12.2 % (0.0-11.0); NEUTROPHIL # 3.1 10^3/ul (1.6-7.5); NEUTROPHILS % 58.6 % (39.0-77.0); PLATELET COUNT 73 10^3/UL (140-415); RED BLOOD COUNT 3.61 10^6/ul (4.20-5.40); RED CELL DISTRIBUTION WIDTH 14.4 % (11.5-14.5)
[2017-06-04 06:41] LABS: WHITE BLOOD COUNT 5.3 10^3/ul (4.8-10.8)
[2017-06-04 06:50] LABS: AMMONIA 24 umol/l (9-30)
[2017-06-04 07:00] LABS: POSITIVE DIFF @See below
[2017-06-04 07:32] LABS: ALANINE AMINOTRANSFERASE 169 IU/L (13-69); ALBUMIN 2.3 g/dl (3.3-4.9); ALBUMIN/GLOBULIN RATIO 0.56; ALKALINE PHOSPHATASE 118 IU/L (42-121); ANION GAP 8 (8-16); ASPARTATE AMINO TRANSFERASE 103 IU/L (15-46); BILIRUBIN,INDIRECT 1.3 mg/dl (0-1.1); BILIRUBIN,TOTAL 1.3 mg/dl (0.2-1.3); BLOOD UREA NITROGEN 6 mg/dl (7-20); CALCIUM 8.1 mg/dl (8.4-10.2); CARBON DIOXIDE 22 mmol/L (21-31); CHLORIDE 107 mmol/L (97-110); CREATININE 0.53 mg/dl (0.44-1.00); GLUCOSE 98 mg/dl (70-220); POTASSIUM 4.4 mmol/L (3.5-5.1); SODIUM 133 mmol/L (135-144); TOTAL PROTEIN 6.4 g/dl (6.1-8.1)
[2017-06-04] MEDS: SODIUM CHLORIDE 1 GM TAB PO ×2 (09:49→12:26)
[2017-06-04] MEDS: RIFAXIMIN 550 MG TAB PO (09:50)
[2017-06-04] MEDS: PROCHLORPERAZINE 10 MG INJ IV (09:51)
[2017-06-04] MEDS: FUROSEMIDE 40 MG TAB PO (09:53)
[2017-06-04] MEDS: SOD CHLORIDE 0.9% 1,000 ML IV (12:27)
== END 2017-06-04 19:35 | disposition home or self-care (01) | DRG 442 ==
LOC: PP2 12:58 → E/R 08:08
PROC: 0W9G30Z Drainage of Peritoneal Cavity with Drainage Device, Percutaneous Approach (ICD-10-PCS; principal; 2017-05-15)
PROC: 30233K1 Transfusion of Nonautologous Frozen Plasma into Peripheral Vein, Percutaneous Approach (ICD-10-PCS; 2017-05-22)
PROC: 0FB03ZX Excision of Liver, Percutaneous Approach, Diagnostic (ICD-10-PCS; 2017-05-23)
DX: K75.4 Autoimmune hepatitis (principal); E87.2 Acidosis; D68.9 Coagulation defect, unspecified; D69.6 Thrombocytopenia, unspecified; E72.20 Disorder of urea cycle metabolism, unspecified; E87.1 Hypo-osmolality and hyponatremia; J98.11 Atelectasis; K74.69 Other cirrhosis of liver; E80.6 Other disorders of bilirubin metabolism; E87.6 Hypokalemia; R97.8 Other abnormal tumor markers; R11.2 Nausea with vomiting, unspecified
CPT/HCPCS: 36415; 36430; 36600; 71045; 71270; 74176; 74183; 76700; 76830; 76856; 76942; 80053; 80061; 81001; 82103; 82105; 82140; 82150; 82378; 82390; 82525; 82728; 82784; 82787; 82803; 82945; 82962; 83036; 83540; 83605; 83615; 83690; 83735; 84100; 84157; 84436; 84443; 84479; 85025; 85335; 85610; 85730; 86038; 86255; 86301; 86304; 86305; 86704; 86709; 86803; 86850; 86900; 86901; 87040; 87070; 87086; 87102; 87116; 87340; 88104; 88305; 88307; 88313; 89051; 89060; 97110; 97116; 97163; 99285-25

== ENCOUNTER 2017-06-09 22:10 | Inpatient (IN) | payer MEDICARE, MEDICAID ==
[2017-06-09 22:40] LABS: ADD MAN DIFF? NO
[2017-06-09] MEDS: SOD CHLORIDE 0.9% 500 ML IV (22:42)
[2017-06-09 22:43] LABS: BASOPHIL # 0.1 10^3/ul (0.0-0.1); BASOPHILS % 0.8 % (0.0-2.0); EOSINOPHILS # 0.1 10^3/ul (0.0-0.5); EOSINOPHILS % 1.4 % (0.0-7.0); HEMOGLOBIN 15.5 g/dl (12.0-16.0); LYMPHOCYTES # 2.3 10^3/ul (0.8-2.9); LYMPHOCYTES % 35.2 % (15.0-51.0); MEAN CORPUSCULAR HEMOGLOBIN 35.6 pg (29.0-33.0); MEAN CORPUSCULAR VOLUME 98.6 fl (82.0-101.0); MEAN PLATELET VOLUME 11.8 fl (7.4-10.4); MONOCYTE # 0.6 10^3/ul (0.3-0.9); MONOCYTES % 9.5 % (0.0-11.0); NEUTROPHIL # 3.5 10^3/ul (1.6-7.5); NEUTROPHILS % 52.5 % (39.0-77.0); PLATELET COUNT 101 10^3/UL (140-415); RED BLOOD COUNT 4.36 10^6/ul (4.20-5.40); RED CELL DISTRIBUTION WIDTH 16.5 % (11.5-14.5)
[2017-06-09 22:43] LABS: WHITE BLOOD COUNT 6.6 10^3/ul (4.8-10.8)
[2017-06-09 23:12] LABS: INR 2.45; PROTIME 27.2 Sec (11.9-14.9); PT RATIO 2.1
[2017-06-09 23:14] LABS: AMMONIA 195 umol/l (9-30)
[2017-06-10] MEDS ORDERED: NACL 0.9% 3 ML SYG IV (00:30)
[2017-06-10] MEDS ORDERED: ACETAMINOPHEN 325 MG TAB PO (00:30)
[2017-06-10 00:49] LABS: ALANINE AMINOTRANSFERASE 209 IU/L (13-69); ALBUMIN 2.9 g/dl (3.3-4.9); ALBUMIN/GLOBULIN RATIO 0.65; ALKALINE PHOSPHATASE 118 IU/L (42-121); ANION GAP 12 (8-16); ASPARTATE AMINO TRANSFERASE 162 IU/L (15-46); BILIRUBIN,INDIRECT 2.8 mg/dl (0-1.1); BILIRUBIN,TOTAL 2.8 mg/dl (0.2-1.3); BLOOD UREA NITROGEN 16 mg/dl (7-20); CALCIUM 8.4 mg/dl (8.4-10.2); CARBON DIOXIDE 23 mmol/L (21-31); CHLORIDE 106 mmol/L (97-110); CREATININE 0.69 mg/dl (0.44-1.00); GLUCOSE 111 mg/dl (70-220); LIPASE 134 U/L (23-300); POTASSIUM 4.3 mmol/L (3.5-5.1); SODIUM 137 mmol/L (135-144); TOTAL PROTEIN 7.3 g/dl (6.1-8.1)
[2017-06-10 01:03] LABS: TROPONIN-I < 0.012 ng/ml (0.00-0.12)
[2017-06-10] MEDS: LACTULOSE 30ML CUP PO (02:56)
[2017-06-10] MEDS: LACTULOSE ENEMA 1,000 ML BTL PR ×3 (04:20→16:02)
[2017-06-10 05:34] LABS: ADD MAN DIFF? NO
[2017-06-10 05:42] LABS: WHITE BLOOD COUNT 5.9 10^3/ul (4.8-10.8)
[2017-06-10 05:42] LABS: ABNORMAL IP MESSAGE 1; HEMATOCRIT 38.7 % (37.0-47.0); MEAN CORPUSCULAR HEMOGLOBIN 35.9 pg (29.0-33.0); MEAN CORPUSCULAR HGB CONC 36.2 g/dl (32.0-37.0); MEAN CORPUSCULAR VOLUME 99.2 fl (82.0-101.0); MEAN PLATELET VOLUME 10.7 fl (7.4-10.4); RED CELL DISTRIBUTION WIDTH 15.9 % (11.5-14.5)
[2017-06-10 05:45] LABS: PLATELET COUNT 71 10^3/UL (140-415); POSITIVE DIFF @See below
[2017-06-10 06:30] LABS: ALANINE AMINOTRANSFERASE 204 IU/L (13-69); ALBUMIN 2.8 g/dl (3.3-4.9); ALBUMIN/GLOBULIN RATIO 0.63; ALKALINE PHOSPHATASE 107 IU/L (42-121); ANION GAP 12 (8-16); ASPARTATE AMINO TRANSFERASE 157 IU/L (15-46); BLOOD UREA NITROGEN 15 mg/dl (7-20); CALCIUM 8.5 mg/dl (8.4-10.2); CARBON DIOXIDE 21 mmol/L (21-31); CHLORIDE 108 mmol/L (97-110); CREATININE 0.56 mg/dl (0.44-1.00); GLUCOSE 108 mg/dl (70-220); MAGNESIUM 1.8 mg/dl (1.7-2.5); POTASSIUM 4.3 mmol/L (3.5-5.1); SODIUM 137 mmol/L (135-144); TOTAL PROTEIN 7.2 g/dl (6.1-8.1)
[2017-06-10 08:40] LABS: ANISOCYTOSIS 2+ (0-0); BURR CELLS 1+ (0-0); EOSINOPHILS % (M) 1 % (0-7); GIANT THROMBO% (M) 1 % (0-0); LYMPHOCYTES #M 1.1 10^3/ul (0.8-2.9); LYMPHOCYTES % (M) 20 % (15-51); MONOCYTE #M 0.2 10^3/ul (0.3-0.9); MONOCYTES % (M) 4 % (0-11); OVALOCYTES 1+ (0-0); PLATELET ESTIMATE DECREASED; POIKILOCYTOSIS 1+ (0-0); POLYCHROMASIA 1+ (0-0); REACTIVE LYMPHOCYTES% (M) 1 % (0-0); SEGMENTED NEUTROPHILS (M) % 74 % (39-77); SMUDGE%M 23 % (0-0); TARGET CELLS 1+ (0-0)
[2017-06-10] MEDS: METHYLPREDNISOLONE 40 MG INJ IV (09:43)
[2017-06-10 15:34] LABS: TROPONIN-I < 0.012 ng/ml (0.00-0.12)
[2017-06-11] MEDS: PANTOPRAZOLE 40 MG INJ IV (06:10)
[2017-06-11] MEDS: LACTULOSE ENEMA 1,000 ML BTL PR ×2 (06:11)
[2017-06-11] MEDS: METHYLPREDNISOLONE 40 MG INJ IV (08:45)
[2017-06-11 08:53] LABS: ADD MAN DIFF? NO
[2017-06-11 08:57] LABS: ABNORMAL IP MESSAGE 1; BASOPHILS % 0.2 % (0.0-2.0); HEMATOCRIT 42.7 % (37.0-47.0); LYMPHOCYTES # 1.6 10^3/ul (0.8-2.9); LYMPHOCYTES % 15.4 % (15.0-51.0); MEAN CORPUSCULAR HEMOGLOBIN 35.5 pg (29.0-33.0); MEAN CORPUSCULAR HGB CONC 35.1 g/dl (32.0-37.0); MEAN CORPUSCULAR VOLUME 100.9 fl (82.0-101.0); MEAN PLATELET VOLUME 10.6 fl (7.4-10.4); MONOCYTE # 0.8 10^3/ul (0.3-0.9); MONOCYTES % 7.8 % (0.0-11.0); NEUTROPHILS % 76.2 % (39.0-77.0); RED BLOOD COUNT 4.23 10^6/ul (4.20-5.40)
[2017-06-11 08:57] LABS: WHITE BLOOD COUNT 10.5 10^3/ul (4.8-10.8)
[2017-06-11 09:08] LABS: PLATELET COUNT 85 10^3/UL (140-415); POSITIVE DIFF @See below
[2017-06-11 09:24] LABS: AMMONIA 45 umol/l (9-30)
[2017-06-11 09:32] LABS: ALANINE AMINOTRANSFERASE 200 IU/L (13-69); ALBUMIN/GLOBULIN RATIO 0.63; ALKALINE PHOSPHATASE 103 IU/L (42-121); ANION GAP 16 (8-16); ASPARTATE AMINO TRANSFERASE 119 IU/L (15-46); BILIRUBIN,INDIRECT 3.6 mg/dl (0-1.1); BILIRUBIN,TOTAL 3.6 mg/dl (0.2-1.3); BLOOD UREA NITROGEN 22 mg/dl (7-20); CALCIUM 9.3 mg/dl (8.4-10.2); CARBON DIOXIDE 19 mmol/L (21-31); CHLORIDE 110 mmol/L (97-110); CREATININE 0.72 mg/dl (0.44-1.00); GLUCOSE 118 mg/dl (70-220); POTASSIUM 4.6 mmol/L (3.5-5.1); SODIUM 140 mmol/L (135-144); TOTAL PROTEIN 7.7 g/dl (6.1-8.1)
[2017-06-11 10:31] LABS: MAGNESIUM 1.8 mg/dl (1.7-2.5)
[2017-06-11 10:31] LABS: PHOSPHORUS 3.9 mg/dl (2.5-4.9)
[2017-06-11] MEDS: DEXTROSE 5%-LR 1,000 ML IV (11:35)
[2017-06-11] MEDS ORDERED: LORAZEPAM 2 MG INJ IV (12:00)
[2017-06-11] MEDS: LACTULOSE 30ML CUP PO (17:27)
[2017-06-11] MEDS: RIFAXIMIN 550 MG TAB PO (21:01)
[2017-06-12] MEDS: LACTULOSE 30ML CUP PO ×4 (00:12→17:32)
[2017-06-12] MEDS: PANTOPRAZOLE 40 MG INJ IV (06:31)
[2017-06-12] MEDS: METHYLPREDNISOLONE 40 MG INJ IV (08:50)
[2017-06-12] MEDS: RIFAXIMIN 550 MG TAB PO ×2 (08:50→21:45)
[2017-06-12 12:10] LABS: AMMONIA 69 umol/l (9-30)
[2017-06-12 12:16] LABS: ALANINE AMINOTRANSFERASE 174 IU/L (13-69); ALBUMIN 3.2 g/dl (3.3-4.9); ALBUMIN/GLOBULIN RATIO 0.64; ALKALINE PHOSPHATASE 115 IU/L (42-121); ANION GAP 14 (8-16); ASPARTATE AMINO TRANSFERASE 94 IU/L (15-46); BILIRUBIN,INDIRECT 3.6 mg/dl (0-1.1); BILIRUBIN,TOTAL 3.6 mg/dl (0.2-1.3); BLOOD UREA NITROGEN 22 mg/dl (7-20); CALCIUM 9.2 mg/dl (8.4-10.2); CARBON DIOXIDE 21 mmol/L (21-31); CHLORIDE 104 mmol/L (97-110); CREATININE 0.62 mg/dl (0.44-1.00); GLUCOSE 137 mg/dl (70-220); POTASSIUM 4.9 mmol/L (3.5-5.1); SODIUM 134 mmol/L (135-144); TOTAL PROTEIN 8.2 g/dl (6.1-8.1)
[2017-06-12] MEDS: METOCLOPRAMIDE 10 MG INJ IV (21:45)
[2017-06-13] MEDS: LACTULOSE 30ML CUP PO ×4 (00:21→18:08)
[2017-06-13] MEDS: PANTOPRAZOLE 40 MG INJ IV (05:56)
[2017-06-13] MEDS: RIFAXIMIN 550 MG TAB PO ×2 (09:43→21:35)
[2017-06-13] MEDS: METHYLPREDNISOLONE 40 MG INJ IV (09:43)
[2017-06-13 12:45] LABS: AMMONIA 71 umol/l (9-30)
[2017-06-13 12:45] LABS: ALANINE AMINOTRANSFERASE 135 IU/L (13-69); ALBUMIN 2.9 g/dl (3.3-4.9); ALBUMIN/GLOBULIN RATIO 0.63; ALKALINE PHOSPHATASE 107 IU/L (42-121); ANION GAP 13 (8-16); ASPARTATE AMINO TRANSFERASE 61 IU/L (15-46); BILIRUBIN,INDIRECT 2.5 mg/dl (0-1.1); BILIRUBIN,TOTAL 2.5 mg/dl (0.2-1.3); BLOOD UREA NITROGEN 19 mg/dl (7-20); CALCIUM 8.8 mg/dl (8.4-10.2); CARBON DIOXIDE 21 mmol/L (21-31); CHLORIDE 102 mmol/L (97-110); GLUCOSE 243 mg/dl (70-220); SODIUM 132 mmol/L (135-144); TOTAL PROTEIN 7.5 g/dl (6.1-8.1)
[2017-06-14] MEDS: LACTULOSE 30ML CUP PO ×3 (00:30→12:29)
[2017-06-14] MEDS: PANTOPRAZOLE 40 MG INJ IV (06:00)
[2017-06-14] MEDS: METHYLPREDNISOLONE 40 MG INJ IV (09:45)
[2017-06-14] MEDS: RIFAXIMIN 550 MG TAB PO (09:45)
[2017-06-14 10:23] LABS: ALANINE AMINOTRANSFERASE 137 IU/L (13-69); ALBUMIN 3.1 g/dl (3.3-4.9); ALBUMIN/GLOBULIN RATIO 0.67; ALKALINE PHOSPHATASE 122 IU/L (42-121); ANION GAP 15 (8-16); ASPARTATE AMINO TRANSFERASE 69 IU/L (15-46); BILIRUBIN,INDIRECT 2.3 mg/dl (0-1.1); BILIRUBIN,TOTAL 2.3 mg/dl (0.2-1.3); BLOOD UREA NITROGEN 17 mg/dl (7-20); CALCIUM 8.6 mg/dl (8.4-10.2); CARBON DIOXIDE 22 mmol/L (21-31); CHLORIDE 103 mmol/L (97-110); CREATININE 0.62 mg/dl (0.44-1.00); GLUCOSE 119 mg/dl (70-220); POTASSIUM 4.3 mmol/L (3.5-5.1); SODIUM 136 mmol/L (135-144); TOTAL PROTEIN 7.7 g/dl (6.1-8.1)
[2017-06-14 10:39] LABS: AMMONIA 64 umol/l (9-30)
== END 2017-06-14 15:00 | disposition home or self-care (01) | DRG 442 ==
LOC: E/R 06-10 06:47 → MS4 23:58 → E/R 22:10
DX: K72.10 Chronic hepatic failure without coma (principal); I47.2 Ventricular tachycardia; D69.6 Thrombocytopenia, unspecified; K75.4 Autoimmune hepatitis; E86.0 Dehydration
CPT/HCPCS: 36415; 70450; 71045; 76705; 80053; 82140; 83690; 83735; 84100; 84484; 85025; 85610; 87081; 92610; 93005; 97110; 97116; 97162; 97530; 99291-25

== ENCOUNTER 2017-08-11 15:52 | Inpatient (IN) | payer MEDICARE, OTHER, MEDICAID ==
[2017-08-11 17:29] LABS: ADD MAN DIFF? NO
[2017-08-11 17:48] LABS: ALANINE AMINOTRANSFERASE 78 IU/L (13-69); ALBUMIN 3.3 g/dl (3.3-4.9); ALBUMIN/GLOBULIN RATIO 0.82; ALKALINE PHOSPHATASE 150 IU/L (42-121); ANION GAP 16 (8-16); ASPARTATE AMINO TRANSFERASE 60 IU/L (15-46); BILIRUBIN,INDIRECT 3.5 mg/dl (0-1.1); BILIRUBIN,TOTAL 3.5 mg/dl (0.2-1.3); BLOOD UREA NITROGEN 14 mg/dl (7-20); CALCIUM 8.4 mg/dl (8.4-10.2); CARBON DIOXIDE 21 mmol/L (21-31); CHLORIDE 90 mmol/L (97-110); CREATININE 0.72 mg/dl (0.44-1.00); GLUCOSE 187 mg/dl (70-220); SODIUM 121 mmol/L (135-144); TOTAL PROTEIN 7.3 g/dl (6.1-8.1)
[2017-08-11 17:53] LABS: POTASSIUM 5.5 mmol/L (3.5-5.1)
[2017-08-11] MEDS: SOD CHLORIDE 0.9% 1,000 ML IV ×2 (17:54→21:33)
[2017-08-11 18:10] LABS: ABNORMAL IP MESSAGE 1; BASOPHILS % 0.1 % (0.0-2.0); HEMATOCRIT 46.1 % (37.0-47.0); HEMOGLOBIN 17.2 g/dl (12.0-16.0); LYMPHOCYTES # 0.6 10^3/ul (0.8-2.9); LYMPHOCYTES % 7.2 % (15.0-51.0); MEAN CORPUSCULAR HEMOGLOBIN 36.6 pg (29.0-33.0); MEAN CORPUSCULAR HGB CONC 37.3 g/dl (32.0-37.0); MEAN CORPUSCULAR VOLUME 98.1 fl (82.0-101.0); MEAN PLATELET VOLUME 10.5 fl (7.4-10.4); MONOCYTE # 0.5 10^3/ul (0.3-0.9); MONOCYTES % 6.6 % (0.0-11.0); NEUTROPHILS % 84.9 % (39.0-77.0); PLATELET COUNT 98 10^3/UL (140-415); RED CELL DISTRIBUTION WIDTH 13.1 % (11.5-14.5)
[2017-08-11 18:10] LABS: WHITE BLOOD COUNT 8.2 10^3/ul (4.8-10.8)
[2017-08-11 18:13] LABS: POSITIVE DIFF @See below
[2017-08-11] MEDS: ONDANSETRON 4 MG INJ IV (18:53)
[2017-08-11 20:02] LABS: ANION GAP 13 (8-16); BLOOD UREA NITROGEN 12 mg/dl (7-20); CALCIUM 7.6 mg/dl (8.4-10.2); CARBON DIOXIDE 17 mmol/L (21-31); CHLORIDE 97 mmol/L (97-110); CREATININE 0.63 mg/dl (0.44-1.00); GLUCOSE 154 mg/dl (70-220); POTASSIUM 5.2 mmol/L (3.5-5.1); SODIUM 122 mmol/L (135-144)
[2017-08-11] MEDS ORDERED: ACETAMINOPHEN 325 MG TAB PO (21:30)
[2017-08-11] MEDS ORDERED: ONDANSETRON 4 MG INJ IV (21:30)
[2017-08-12] MEDS: SOD CHLORIDE 0.9% 1,000 ML IV ×2 (04:29→14:11)
[2017-08-12] MEDS ORDERED: NACL 0.9% 3 ML SYG IV (04:30)
[2017-08-12] MEDS ORDERED: morphine 2 MG INJ IV (04:30)
[2017-08-12] MEDS ORDERED: ACETAMINOPHEN 325 MG TAB PO (04:30)
[2017-08-12] MEDS ORDERED: ALBUTEROL/IPRATROPIUM (NEB) 3 ML AMP HHN (04:30)
[2017-08-12] MEDS: PANTOPRAZOLE (EC) 40 MG TAB PO (07:20)
[2017-08-12] MEDS: LACTULOSE 30ML CUP PO ×3 (07:20→18:00)
[2017-08-12 07:35] LABS: ADD MAN DIFF? NO
[2017-08-12 07:46] LABS: ABNORMAL IP MESSAGE 1; BASOPHILS % 0.2 % (0.0-2.0); EOSINOPHILS % 0.2 % (0.0-7.0); HEMATOCRIT 42.8 % (37.0-47.0); HEMOGLOBIN 15.8 g/dl (12.0-16.0); LYMPHOCYTES # 1.5 10^3/ul (0.8-2.9); MEAN CORPUSCULAR HEMOGLOBIN 36.4 pg (29.0-33.0); MEAN CORPUSCULAR HGB CONC 36.9 g/dl (32.0-37.0); MEAN CORPUSCULAR VOLUME 98.6 fl (82.0-101.0); MEAN PLATELET VOLUME 10.1 fl (7.4-10.4); MONOCYTE # 0.7 10^3/ul (0.3-0.9); NEUTROPHIL # 6.2 10^3/ul (1.6-7.5); NEUTROPHILS % 72.8 % (39.0-77.0); RED BLOOD COUNT 4.34 10^6/ul (4.20-5.40); RED CELL DISTRIBUTION WIDTH 13.1 % (11.5-14.5)
[2017-08-12 07:46] LABS: WHITE BLOOD COUNT 8.6 10^3/ul (4.8-10.8)
[2017-08-12 07:48] LABS: PLATELET COUNT 82 10^3/UL (140-415); POSITIVE DIFF @See below
[2017-08-12 07:57] LABS: ALANINE AMINOTRANSFERASE 73 IU/L (13-69); ALBUMIN 2.6 g/dl (3.3-4.9); ALBUMIN/GLOBULIN RATIO 0.74; ALKALINE PHOSPHATASE 142 IU/L (42-121); ANION GAP 11 (8-16); ASPARTATE AMINO TRANSFERASE 48 IU/L (15-46); BLOOD UREA NITROGEN 11 mg/dl (7-20); CALCIUM 7.9 mg/dl (8.4-10.2); CARBON DIOXIDE 21 mmol/L (21-31); CHLORIDE 97 mmol/L (97-110); CREATININE 0.57 mg/dl (0.44-1.00); GLUCOSE 80 mg/dl (70-220); POTASSIUM 4.8 mmol/L (3.5-5.1); SODIUM 124 mmol/L (135-144); TOTAL PROTEIN 6.1 g/dl (6.1-8.1)
[2017-08-12 08:02] LABS: OSMOLALITY 254 mOsm/kg (280-295)
[2017-08-12] MEDS: NEOMYCIN 500 MG TAB PO ×3 (08:52→23:00)
[2017-08-12] MEDS: FUROSEMIDE 40 MG TAB PO (08:52)
[2017-08-12] MEDS: SPIRONOLACTONE 50 MG TAB PO ×2 (08:52→18:23)
[2017-08-12 10:22] LABS: AMMONIA 25 umol/l (9-30)
[2017-08-12 16:12] LABS: ANION GAP 13 (8-16); BLOOD UREA NITROGEN 12 mg/dl (7-20); CALCIUM 8.1 mg/dl (8.4-10.2); CARBON DIOXIDE 21 mmol/L (21-31); CHLORIDE 95 mmol/L (97-110); GLUCOSE 121 mg/dl (70-220); POTASSIUM 4.7 mmol/L (3.5-5.1); SODIUM 124 mmol/L (135-144)
[2017-08-13] MEDS: SOD CHLORIDE 0.9% 1,000 ML IV (05:54)
[2017-08-13] MEDS: PANTOPRAZOLE (EC) 40 MG TAB PO (05:54)
[2017-08-13] MEDS: SPIRONOLACTONE 50 MG TAB PO ×2 (05:54→17:37)
[2017-08-13] MEDS: LACTULOSE 30ML CUP PO ×4 (05:54→17:36)
[2017-08-13 07:38] LABS: ADD MAN DIFF? NO
[2017-08-13 08:17] LABS: ANION GAP 13 (8-16); BLOOD UREA NITROGEN 10 mg/dl (7-20); CALCIUM 8.5 mg/dl (8.4-10.2); CARBON DIOXIDE 18 mmol/L (21-31); CHLORIDE 95 mmol/L (97-110); CREATININE 0.64 mg/dl (0.44-1.00); GLUCOSE 84 mg/dl (70-220); MAGNESIUM 1.6 mg/dl (1.7-2.5); PHOSPHORUS 3.8 mg/dl (2.5-4.9); POTASSIUM 5.2 mmol/L (3.5-5.1); SODIUM 121 mmol/L (135-144)
[2017-08-13] MEDS: FUROSEMIDE 40 MG TAB PO (08:28)
[2017-08-13] MEDS: NEOMYCIN 500 MG TAB PO ×3 (08:28→21:42)
[2017-08-13 09:01] LABS: ABNORMAL IP MESSAGE 1; BASOPHILS % 0.4 % (0.0-2.0); EOSINOPHILS % 0.3 % (0.0-7.0); HEMATOCRIT 45.4 % (37.0-47.0); HEMOGLOBIN 16.9 g/dl (12.0-16.0); LYMPHOCYTES # 1.7 10^3/ul (0.8-2.9); LYMPHOCYTES % 23.9 % (15.0-51.0); MEAN CORPUSCULAR HEMOGLOBIN 37.1 pg (29.0-33.0); MEAN CORPUSCULAR HGB CONC 37.2 g/dl (32.0-37.0); MEAN CORPUSCULAR VOLUME 99.8 fl (82.0-101.0); MEAN PLATELET VOLUME 10.1 fl (7.4-10.4); MONOCYTE # 0.6 10^3/ul (0.3-0.9); MONOCYTES % 8.1 % (0.0-11.0); NEUTROPHIL # 4.7 10^3/ul (1.6-7.5); NEUTROPHILS % 66.6 % (39.0-77.0); PLATELET COUNT 73 10^3/UL (140-415); POSITIVE DIFF @See below; RED BLOOD COUNT 4.55 10^6/ul (4.20-5.40); RED CELL DISTRIBUTION WIDTH 13.2 % (11.5-14.5)
[2017-08-13] MEDS: MAGNESIUM SULFATE 2 GM/50 ML 50 ML IVPB (09:26)
[2017-08-13 11:02] LABS: URIC ACID 3.6 mg/dl (3.1-7.9)
[2017-08-13 12:55] LABS: ANION GAP 11 (8-16); BLOOD UREA NITROGEN 12 mg/dl (7-20); CALCIUM 8.2 mg/dl (8.4-10.2); CARBON DIOXIDE 20 mmol/L (21-31); CHLORIDE 95 mmol/L (97-110); CREATININE 0.67 mg/dl (0.44-1.00); GLUCOSE 115 mg/dl (70-220); POTASSIUM 4.7 mmol/L (3.5-5.1); SODIUM 121 mmol/L (135-144)
[2017-08-13] MEDS: ONDANSETRON 4 MG INJ IV ×2 (17:39→21:41)
[2017-08-13 20:02] LABS: ANION GAP 15 (8-16); BLOOD UREA NITROGEN 13 mg/dl (7-20); CALCIUM 8.3 mg/dl (8.4-10.2); CARBON DIOXIDE 18 mmol/L (21-31); CHLORIDE 96 mmol/L (97-110); CREATININE 0.81 mg/dl (0.44-1.00); GLUCOSE 102 mg/dl (70-220); POTASSIUM 4.8 mmol/L (3.5-5.1); SODIUM 124 mmol/L (135-144)
[2017-08-14] MEDS: LACTULOSE 30ML CUP PO ×4 (06:00→17:56)
[2017-08-14] MEDS: SPIRONOLACTONE 50 MG TAB PO ×2 (06:27→17:57)
[2017-08-14] MEDS: PANTOPRAZOLE (EC) 40 MG TAB PO (06:28)
[2017-08-14 07:35] LABS: ADD MAN DIFF? NO
[2017-08-14 07:36] LABS: WHITE BLOOD COUNT 5.5 10^3/ul (4.8-10.8)
[2017-08-14 07:36] LABS: ABNORMAL IP MESSAGE 1; BASOPHILS % 0.5 % (0.0-2.0); EOSINOPHILS % 0.7 % (0.0-7.0); HEMOGLOBIN 16.7 g/dl (12.0-16.0); LYMPHOCYTES # 1.3 10^3/ul (0.8-2.9); LYMPHOCYTES % 23.6 % (15.0-51.0); MEAN CORPUSCULAR HEMOGLOBIN 36.8 pg (29.0-33.0); MEAN CORPUSCULAR HGB CONC 37.1 g/dl (32.0-37.0); MEAN CORPUSCULAR VOLUME 99.1 fl (82.0-101.0); MEAN PLATELET VOLUME 9.6 fl (7.4-10.4); MONOCYTE # 0.4 10^3/ul (0.3-0.9); MONOCYTES % 7.2 % (0.0-11.0); NEUTROPHIL # 3.7 10^3/ul (1.6-7.5); NEUTROPHILS % 67.3 % (39.0-77.0); RED BLOOD COUNT 4.54 10^6/ul (4.20-5.40); RED CELL DISTRIBUTION WIDTH 13.1 % (11.5-14.5)
[2017-08-14 07:42] LABS: PLATELET COUNT 86 10^3/UL (140-415)
[2017-08-14 07:55] LABS: AMMONIA 44 umol/l (9-30)
[2017-08-14 07:57] LABS: PHOSPHORUS 3.5 mg/dl (2.5-4.9)
[2017-08-14 07:57] LABS: MAGNESIUM 1.6 mg/dl (1.7-2.5)
[2017-08-14 08:01] LABS: ALANINE AMINOTRANSFERASE 72 IU/L (13-69); ALBUMIN 2.7 g/dl (3.3-4.9); ALBUMIN/GLOBULIN RATIO 0.72; ALKALINE PHOSPHATASE 108 IU/L (42-121); ANION GAP 14 (8-16); ASPARTATE AMINO TRANSFERASE 51 IU/L (15-46); BILIRUBIN,INDIRECT 2.3 mg/dl (0-1.1); BILIRUBIN,TOTAL 2.3 mg/dl (0.2-1.3); BLOOD UREA NITROGEN 11 mg/dl (7-20); CALCIUM 8.2 mg/dl (8.4-10.2); CARBON DIOXIDE 18 mmol/L (21-31); CHLORIDE 95 mmol/L (97-110); CREATININE 0.68 mg/dl (0.44-1.00); GLUCOSE 149 mg/dl (70-220); POTASSIUM 4.7 mmol/L (3.5-5.1); SODIUM 122 mmol/L (135-144); TOTAL PROTEIN 6.4 g/dl (6.1-8.1)
[2017-08-14] MEDS: NEOMYCIN 500 MG TAB PO ×3 (08:29→20:38)
[2017-08-14] MEDS: FUROSEMIDE 40 MG TAB PO (08:33)
[2017-08-14] MEDS: MAGNESIUM OXIDE 400 MG TAB PO (11:02)
[2017-08-14] MEDS: ONDANSETRON 4 MG INJ IV ×2 (12:15→20:43)
[2017-08-14 14:53] LABS: ANION GAP 15 (8-16); BLOOD UREA NITROGEN 13 mg/dl (7-20); CALCIUM 8.6 mg/dl (8.4-10.2); CARBON DIOXIDE 20 mmol/L (21-31); CHLORIDE 95 mmol/L (97-110); CREATININE 0.83 mg/dl (0.44-1.00); GLUCOSE 126 mg/dl (70-220); SODIUM 125 mmol/L (135-144)
[2017-08-15] MEDS: SPIRONOLACTONE 50 MG TAB PO ×2 (06:49→17:10)
[2017-08-15] MEDS: LACTULOSE 30ML CUP PO ×4 (06:49→17:10)
[2017-08-15] MEDS: PANTOPRAZOLE (EC) 40 MG TAB PO (06:49)
[2017-08-15 07:51] LABS: MAGNESIUM 1.8 mg/dl (1.7-2.5)
[2017-08-15 07:51] LABS: PHOSPHORUS 3.6 mg/dl (2.5-4.9)
[2017-08-15] MEDS: NEOMYCIN 500 MG TAB PO (08:39)
[2017-08-15] MEDS: FUROSEMIDE 40 MG TAB PO (08:40)
[2017-08-15 09:41] LABS: ADD UMIC YES; UR ASCORBIC ACID NEGATIVE (NEGATIVE); UR BACTERIA FEW /HPF (NONE SEEN); UR BILIRUBIN (Dip) NEGATIVE (NEGATIVE); UR BLOOD (Dip) 2+ mg/dL (NEGATIVE); UR CLARITY CLEAR (CLEAR); UR COLOR YELLOW (YELLOW); UR GLUCOSE (Dip) NEGATIVE (NEGATIVE); UR KETONES (Dip) NEGATIVE (NEGATIVE); UR LEUKOCYTE ESTERASE (Dip) TRACE Leu/ul (NEGATIVE); UR NITRITE (Dip) NEGATIVE (NEGATIVE); UR RBC 3 /HPF (0-5); UR SPECIFIC GRAVITY (Dip) 1.016 (1.003-1.030); UR TOTAL PROTEIN (Dip) NEGATIVE (NEGATIVE); UR UROBILINOGEN (Dip) 1+ mg/dL (NEGATIVE); UR WBC 2 /HPF (0-5)
[2017-08-15 18:03] LABS: ANION GAP 17 (8-16); BLOOD UREA NITROGEN 13 mg/dl (7-20); CALCIUM 8.4 mg/dl (8.4-10.2); CARBON DIOXIDE 17 mmol/L (21-31); CHLORIDE 95 mmol/L (97-110); CREATININE 0.84 mg/dl (0.44-1.00); GLUCOSE 162 mg/dl (70-220); POTASSIUM 5.1 mmol/L (3.5-5.1); SODIUM 124 mmol/L (135-144)
[2017-08-16] MEDS: LACTULOSE 30ML CUP PO ×4 (00:20→17:04)
[2017-08-16] MEDS: SPIRONOLACTONE 50 MG TAB PO ×2 (05:19→17:05)
[2017-08-16] MEDS: PANTOPRAZOLE (EC) 40 MG TAB PO (05:19)
[2017-08-16 07:51] LABS: ADD MAN DIFF? NO
[2017-08-16 07:58] LABS: WHITE BLOOD COUNT 6.4 10^3/ul (4.8-10.8)
[2017-08-16 07:58] LABS: BASOPHILS % 0.5 % (0.0-2.0); EOSINOPHILS # 0.1 10^3/ul (0.0-0.5); EOSINOPHILS % 1.6 % (0.0-7.0); HEMATOCRIT 47.6 % (37.0-47.0); HEMOGLOBIN 17.8 g/dl (12.0-16.0); LYMPHOCYTES # 1.6 10^3/ul (0.8-2.9); LYMPHOCYTES % 24.7 % (15.0-51.0); MEAN CORPUSCULAR HEMOGLOBIN 36.6 pg (29.0-33.0); MEAN CORPUSCULAR HGB CONC 37.4 g/dl (32.0-37.0); MEAN CORPUSCULAR VOLUME 97.9 fl (82.0-101.0); MEAN PLATELET VOLUME 9.8 fl (7.4-10.4); MONOCYTE # 0.7 10^3/ul (0.3-0.9); MONOCYTES % 10.3 % (0.0-11.0); NEUTROPHIL # 3.9 10^3/ul (1.6-7.5); NEUTROPHILS % 61.6 % (39.0-77.0); RED BLOOD COUNT 4.86 10^6/ul (4.20-5.40); RED CELL DISTRIBUTION WIDTH 13.4 % (11.5-14.5)
[2017-08-16 08:09] LABS: PLATELET COUNT 108 10^3/UL (140-415); POSITIVE DIFF @See below
[2017-08-16 08:16] LABS: AMMONIA 46 umol/l (9-30)
[2017-08-16 08:23] LABS: MAGNESIUM 1.8 mg/dl (1.7-2.5)
[2017-08-16 08:23] LABS: PHOSPHORUS 3.6 mg/dl (2.5-4.9)
[2017-08-16 08:37] LABS: ALANINE AMINOTRANSFERASE 74 IU/L (13-69); ALBUMIN 3.3 g/dl (3.3-4.9); ALBUMIN/GLOBULIN RATIO 0.89; ALKALINE PHOSPHATASE 138 IU/L (42-121); ANION GAP 16 (8-16); ASPARTATE AMINO TRANSFERASE 66 IU/L (15-46); BILIRUBIN,INDIRECT 1.8 mg/dl (0-1.1); BILIRUBIN,TOTAL 1.8 mg/dl (0.2-1.3); BLOOD UREA NITROGEN 13 mg/dl (7-20); CALCIUM 8.6 mg/dl (8.4-10.2); CARBON DIOXIDE 19 mmol/L (21-31); CHLORIDE 96 mmol/L (97-110); CREATININE 0.72 mg/dl (0.44-1.00); GLUCOSE 112 mg/dl (70-220); POTASSIUM 5.1 mmol/L (3.5-5.1); SODIUM 126 mmol/L (135-144)
[2017-08-16] MEDS: FUROSEMIDE 40 MG TAB PO (08:47)
[2017-08-16 12:31] LABS: INR 1.51; PROTIME 18.5 Sec (11.9-14.9); PT RATIO 1.4
[2017-08-16 12:33] LABS: PARTIAL THROMBOPLASTIN TIME 40.7 Sec (25.0-35.0)
[2017-08-16] MEDS: ONDANSETRON 4 MG INJ IV ×2 (12:59→17:05)
[2017-08-16 21:04] LABS: OSMOLALITY,URINE 530 mOsm/kg (250-1200)
[2017-08-17] MEDS: LACTULOSE 30ML CUP PO ×4 (00:22→21:29)
[2017-08-17] MEDS: PANTOPRAZOLE (EC) 40 MG TAB PO (05:52)
[2017-08-17] MEDS: SPIRONOLACTONE 50 MG TAB PO ×2 (05:52→17:08)
[2017-08-17 08:11] LABS: ANION GAP 15 (8-16); BLOOD UREA NITROGEN 13 mg/dl (7-20); CALCIUM 8.7 mg/dl (8.4-10.2); CARBON DIOXIDE 18 mmol/L (21-31); CHLORIDE 96 mmol/L (97-110); CREATININE 0.69 mg/dl (0.44-1.00); GLUCOSE 125 mg/dl (70-220); MAGNESIUM 1.7 mg/dl (1.7-2.5); PHOSPHORUS 3.5 mg/dl (2.5-4.9); POTASSIUM 4.7 mmol/L (3.5-5.1); SODIUM 124 mmol/L (135-144)
[2017-08-17] MEDS: FUROSEMIDE 40 MG TAB PO (09:01)
[2017-08-17 10:29] LABS: ADD MAN DIFF? NO
[2017-08-17 10:32] LABS: WHITE BLOOD COUNT 5.9 10^3/ul (4.8-10.8)
[2017-08-17 10:32] LABS: BASOPHILS % 0.3 % (0.0-2.0); EOSINOPHILS # 0.1 10^3/ul (0.0-0.5); EOSINOPHILS % 1.4 % (0.0-7.0); HEMATOCRIT 47.5 % (37.0-47.0); HEMOGLOBIN 17.7 g/dl (12.0-16.0); LYMPHOCYTES # 1.5 10^3/ul (0.8-2.9); LYMPHOCYTES % 25.3 % (15.0-51.0); MEAN CORPUSCULAR HEMOGLOBIN 36.9 pg (29.0-33.0); MEAN CORPUSCULAR HGB CONC 37.3 g/dl (32.0-37.0); MEAN PLATELET VOLUME 10.3 fl (7.4-10.4); MONOCYTE # 0.6 10^3/ul (0.3-0.9); MONOCYTES % 9.6 % (0.0-11.0); NEUTROPHIL # 3.7 10^3/ul (1.6-7.5); NEUTROPHILS % 62.2 % (39.0-77.0); PLATELET COUNT 112 10^3/UL (140-415); RED CELL DISTRIBUTION WIDTH 13.3 % (11.5-14.5)
[2017-08-17] MEDS: ONDANSETRON 4 MG INJ IV ×2 (12:30→16:31)
[2017-08-18] MEDS: LACTULOSE 30ML CUP PO (05:52)
[2017-08-18] MEDS: PANTOPRAZOLE (EC) 40 MG TAB PO (05:52)
[2017-08-18] MEDS: SPIRONOLACTONE 50 MG TAB PO (05:52)
[2017-08-18 06:52] LABS: ANION GAP 14 (8-16); BLOOD UREA NITROGEN 16 mg/dl (7-20); CALCIUM 8.3 mg/dl (8.4-10.2); CARBON DIOXIDE 21 mmol/L (21-31); CHLORIDE 96 mmol/L (97-110); CREATININE 0.74 mg/dl (0.44-1.00); GLUCOSE 108 mg/dl (70-220); MAGNESIUM 1.7 mg/dl (1.7-2.5); PHOSPHORUS 3.6 mg/dl (2.5-4.9); POTASSIUM 4.6 mmol/L (3.5-5.1); SODIUM 126 mmol/L (135-144)
[2017-08-18] MEDS: FUROSEMIDE 40 MG TAB PO (09:36)
[2017-08-18] MEDS: SPIRONOLACTONE 25 MG TAB PO ×2 (11:17→17:28)
[2017-08-18] MEDS: MAGNESIUM HYDROXIDE 30ML CUP PO (20:33)
[2017-08-19 01:38] LABS: SODIUM,URINE RANDOM 109 mmol/L (30-90)
[2017-08-19 04:13] LABS: OSMOLALITY,URINE 412 mOsm/kg (250-1200)
[2017-08-19] MEDS: LACTULOSE 30ML CUP PO ×3 (05:58→22:14)
[2017-08-19] MEDS: PANTOPRAZOLE (EC) 40 MG TAB PO (05:58)
[2017-08-19] MEDS: SPIRONOLACTONE 25 MG TAB PO ×2 (05:58→17:24)
[2017-08-19 06:07] LABS: ADD MAN DIFF? NO
[2017-08-19 06:24] LABS: BASOPHILS % 0.5 % (0.0-2.0); EOSINOPHILS # 0.1 10^3/ul (0.0-0.5); HEMATOCRIT 45.1 % (37.0-47.0); HEMOGLOBIN 16.7 g/dl (12.0-16.0); LYMPHOCYTES # 1.8 10^3/ul (0.8-2.9); LYMPHOCYTES % 29.7 % (15.0-51.0); MEAN CORPUSCULAR HEMOGLOBIN 36.7 pg (29.0-33.0); MEAN CORPUSCULAR VOLUME 99.1 fl (82.0-101.0); MEAN PLATELET VOLUME 9.3 fl (7.4-10.4); MONOCYTE # 0.5 10^3/ul (0.3-0.9); NEUTROPHIL # 3.5 10^3/ul (1.6-7.5); PLATELET COUNT 114 10^3/UL (140-415); RED BLOOD COUNT 4.55 10^6/ul (4.20-5.40); RED CELL DISTRIBUTION WIDTH 13.2 % (11.5-14.5)
[2017-08-19 06:29] LABS: MAGNESIUM 1.9 mg/dl (1.7-2.5)
[2017-08-19 06:31] LABS: ALANINE AMINOTRANSFERASE 75 IU/L (13-69); ALBUMIN 2.6 g/dl (3.3-4.9); ALBUMIN/GLOBULIN RATIO 0.68; ALKALINE PHOSPHATASE 111 IU/L (42-121); ANION GAP 13 (8-16); ASPARTATE AMINO TRANSFERASE 58 IU/L (15-46); BILIRUBIN,INDIRECT 3.2 mg/dl (0-1.1); BILIRUBIN,TOTAL 3.2 mg/dl (0.2-1.3); BLOOD UREA NITROGEN 16 mg/dl (7-20); CALCIUM 8.1 mg/dl (8.4-10.2); CARBON DIOXIDE 22 mmol/L (21-31); CHLORIDE 95 mmol/L (97-110); CREATININE 0.73 mg/dl (0.44-1.00); GLUCOSE 133 mg/dl (70-220); SODIUM 125 mmol/L (135-144); TOTAL PROTEIN 6.4 g/dl (6.1-8.1)
[2017-08-19 06:32] LABS: AMMONIA 117 umol/l (9-30)
[2017-08-19] MEDS: MULTIVITAMINS THERAPEUTIC TAB PO (08:33)
[2017-08-19] MEDS: FUROSEMIDE 40 MG TAB PO (08:34)
[2017-08-19] MEDS: ONDANSETRON 4 MG INJ IV ×2 (17:24→22:14)
[2017-08-20] MEDS: LACTULOSE 30ML CUP PO ×3 (05:59→21:57)
[2017-08-20] MEDS: ONDANSETRON 4 MG INJ IV ×2 (05:59→14:31)
[2017-08-20] MEDS: SPIRONOLACTONE 25 MG TAB PO ×2 (05:59→17:58)
[2017-08-20] MEDS: PANTOPRAZOLE (EC) 40 MG TAB PO (06:00)
[2017-08-20] MEDS: MULTIVITAMINS THERAPEUTIC TAB PO (08:10)
[2017-08-20] MEDS: FUROSEMIDE 40 MG TAB PO (08:15)
[2017-08-20 08:56] LABS: ADD MAN DIFF? NO
[2017-08-20 09:00] LABS: WHITE BLOOD COUNT 5.8 10^3/ul (4.8-10.8)
[2017-08-20 09:00] LABS: BASOPHILS % 0.5 % (0.0-2.0); EOSINOPHILS # 0.1 10^3/ul (0.0-0.5); EOSINOPHILS % 1.2 % (0.0-7.0); HEMATOCRIT 46.4 % (37.0-47.0); HEMOGLOBIN 17.1 g/dl (12.0-16.0); LYMPHOCYTES # 1.6 10^3/ul (0.8-2.9); LYMPHOCYTES % 28.4 % (15.0-51.0); MEAN CORPUSCULAR HEMOGLOBIN 36.7 pg (29.0-33.0); MEAN CORPUSCULAR HGB CONC 36.9 g/dl (32.0-37.0); MEAN CORPUSCULAR VOLUME 99.6 fl (82.0-101.0); MEAN PLATELET VOLUME 9.4 fl (7.4-10.4); MONOCYTE # 0.5 10^3/ul (0.3-0.9); MONOCYTES % 8.3 % (0.0-11.0); NEUTROPHIL # 3.5 10^3/ul (1.6-7.5); NEUTROPHILS % 60.9 % (39.0-77.0); PLATELET COUNT 115 10^3/UL (140-415); RED BLOOD COUNT 4.66 10^6/ul (4.20-5.40); RED CELL DISTRIBUTION WIDTH 13.2 % (11.5-14.5)
[2017-08-20 09:29] LABS: PHOSPHORUS 3.7 mg/dl (2.5-4.9)
[2017-08-20 09:31] LABS: ALANINE AMINOTRANSFERASE 81 IU/L (13-69); ALBUMIN 2.9 g/dl (3.3-4.9); ALBUMIN/GLOBULIN RATIO 0.74; ALKALINE PHOSPHATASE 122 IU/L (42-121); ANION GAP 13 (8-16); ASPARTATE AMINO TRANSFERASE 64 IU/L (15-46); BILIRUBIN,INDIRECT 2.8 mg/dl (0-1.1); BILIRUBIN,TOTAL 2.8 mg/dl (0.2-1.3); BLOOD UREA NITROGEN 17 mg/dl (7-20); CALCIUM 8.6 mg/dl (8.4-10.2); CARBON DIOXIDE 22 mmol/L (21-31); CHLORIDE 98 mmol/L (97-110); CREATININE 0.79 mg/dl (0.44-1.00); GLUCOSE 113 mg/dl (70-220); POTASSIUM 4.3 mmol/L (3.5-5.1); SODIUM 129 mmol/L (135-144); TOTAL PROTEIN 6.8 g/dl (6.1-8.1)
[2017-08-20 09:41] LABS: AMMONIA 58 umol/l (9-30)
[2017-08-20] MEDS: DEMECLOCYCLINE 150 MG TAB PO ×2 (10:44→21:57)
[2017-08-20] MEDS: PROCHLORPERAZINE 10 MG INJ IV (21:57)
[2017-08-21] MEDS: SPIRONOLACTONE 25 MG TAB PO ×2 (05:36→17:34)
[2017-08-21] MEDS: PROCHLORPERAZINE 10 MG INJ IV ×2 (05:36→21:40)
[2017-08-21] MEDS: PANTOPRAZOLE (EC) 40 MG TAB PO (05:36)
[2017-08-21] MEDS: LACTULOSE 30ML CUP PO ×3 (05:36→21:40)
[2017-08-21 08:31] LABS: ADD MAN DIFF? NO
[2017-08-21 08:36] LABS: WHITE BLOOD COUNT 6.2 10^3/ul (4.8-10.8)
[2017-08-21 08:36] LABS: BASOPHILS % 0.6 % (0.0-2.0); EOSINOPHILS # 0.1 10^3/ul (0.0-0.5); EOSINOPHILS % 1.5 % (0.0-7.0); HEMATOCRIT 46.5 % (37.0-47.0); HEMOGLOBIN 16.6 g/dl (12.0-16.0); LYMPHOCYTES # 2.1 10^3/ul (0.8-2.9); LYMPHOCYTES % 34.1 % (15.0-51.0); MEAN CORPUSCULAR HEMOGLOBIN 36.2 pg (29.0-33.0); MEAN CORPUSCULAR HGB CONC 35.7 g/dl (32.0-37.0); MEAN CORPUSCULAR VOLUME 101.5 fl (82.0-101.0); MEAN PLATELET VOLUME 9.3 fl (7.4-10.4); MONOCYTE # 0.5 10^3/ul (0.3-0.9); MONOCYTES % 8.6 % (0.0-11.0); NEUTROPHIL # 3.4 10^3/ul (1.6-7.5); NEUTROPHILS % 54.2 % (39.0-77.0); PLATELET COUNT 104 10^3/UL (140-415); RED BLOOD COUNT 4.58 10^6/ul (4.20-5.40); RED CELL DISTRIBUTION WIDTH 13.5 % (11.5-14.5)
[2017-08-21 08:38] LABS: POSITIVE DIFF @See below
[2017-08-21] MEDS: MULTIVITAMINS THERAPEUTIC TAB PO (08:45)
[2017-08-21] MEDS: FUROSEMIDE 40 MG TAB PO (08:46)
[2017-08-21] MEDS: DEMECLOCYCLINE 150 MG TAB PO ×2 (08:47→21:40)
[2017-08-21 09:01] LABS: ANION GAP 12 (8-16); BLOOD UREA NITROGEN 16 mg/dl (7-20); CALCIUM 8.4 mg/dl (8.4-10.2); CARBON DIOXIDE 24 mmol/L (21-31); CHLORIDE 97 mmol/L (97-110); CREATININE 0.78 mg/dl (0.44-1.00); GLUCOSE 98 mg/dl (70-220); MAGNESIUM 1.9 mg/dl (1.7-2.5); PHOSPHORUS 4.1 mg/dl (2.5-4.9); POTASSIUM 4.9 mmol/L (3.5-5.1); SODIUM 128 mmol/L (135-144)
[2017-08-21] MEDS: ONDANSETRON 4 MG INJ IV (13:14)
[2017-08-22] MEDS: PROCHLORPERAZINE 10 MG INJ IV (05:47)
[2017-08-22] MEDS: PANTOPRAZOLE (EC) 40 MG TAB PO (05:47)
[2017-08-22] MEDS: LACTULOSE 30ML CUP PO ×2 (05:47→14:00)
[2017-08-22] MEDS: SPIRONOLACTONE 25 MG TAB PO (05:47)
[2017-08-22] MEDS: DEMECLOCYCLINE 150 MG TAB PO (08:25)
[2017-08-22] MEDS: MULTIVITAMINS THERAPEUTIC TAB PO (08:25)
[2017-08-22] MEDS: FUROSEMIDE 40 MG TAB PO (08:25)
[2017-08-22 09:50] LABS: ADD MAN DIFF? NO
[2017-08-22 09:55] LABS: BASOPHIL # 0.1 10^3/ul (0.0-0.1); BASOPHILS % 0.7 % (0.0-2.0); EOSINOPHILS % 0.5 % (0.0-7.0); HEMATOCRIT 48.5 % (37.0-47.0); HEMOGLOBIN 17.8 g/dl (12.0-16.0); LYMPHOCYTES # 1.6 10^3/ul (0.8-2.9); LYMPHOCYTES % 21.7 % (15.0-51.0); MEAN CORPUSCULAR HEMOGLOBIN 37.4 pg (29.0-33.0); MEAN CORPUSCULAR HGB CONC 36.7 g/dl (32.0-37.0); MEAN CORPUSCULAR VOLUME 101.9 fl (82.0-101.0); MEAN PLATELET VOLUME 9.3 fl (7.4-10.4); MONOCYTE # 0.5 10^3/ul (0.3-0.9); MONOCYTES % 6.7 % (0.0-11.0); NEUTROPHIL # 5.2 10^3/ul (1.6-7.5); NEUTROPHILS % 69.6 % (39.0-77.0); PLATELET COUNT 113 10^3/UL (140-415); RED BLOOD COUNT 4.76 10^6/ul (4.20-5.40); RED CELL DISTRIBUTION WIDTH 13.4 % (11.5-14.5)
[2017-08-22 09:55] LABS: WHITE BLOOD COUNT 7.4 10^3/ul (4.8-10.8)
[2017-08-22 10:14] LABS: BLOOD UREA NITROGEN 20 mg/dl (7-20); CALCIUM 8.5 mg/dl (8.4-10.2); CARBON DIOXIDE 18 mmol/L (21-31); CHLORIDE 100 mmol/L (97-110); CREATININE 0.94 mg/dl (0.44-1.00); GLUCOSE 124 mg/dl (70-220); SODIUM 129 mmol/L (135-144)
[2017-08-22 10:18] LABS: ANION GAP 16 (8-16)
== END 2017-08-22 15:05 | disposition home or self-care (01) | DRG 644 ==
LOC: MS4 21:34 → E/R 15:52
DX: E22.2 Syndrome of inappropriate secretion of antidiuretic hormone (principal); E87.1 Hypo-osmolality and hyponatremia; E87.2 Acidosis; R53.1 Weakness; K74.69 Other cirrhosis of liver; R79.89 Other specified abnormal findings of blood chemistry; D64.9 Anemia, unspecified; E87.6 Hypokalemia; E83.42 Hypomagnesemia; K75.4 Autoimmune hepatitis; D69.59 Other secondary thrombocytopenia; E87.5 Hyperkalemia; E80.6 Other disorders of bilirubin metabolism; R11.2 Nausea with vomiting, unspecified
CPT/HCPCS: 36415; 71045; 74018; 80048; 80053; 81001; 82140; 82533; 83735; 83930; 83935; 84100; 84300; 84443; 84560; 85025; 85610; 85730; 96361; 96374; 99285-25; G0378

== ENCOUNTER 2018-02-20 02:04 | Emergency (ER) | payer MEDICARE, OTHER ==
[2018-02-20] MEDS: GUAIFENESIN/DM 5ML CUP PO (04:05)
== END 2018-02-20 04:47 | disposition home or self-care (01) ==
LOC: FTE 02:04
DX: J20.9 Acute bronchitis, unspecified (principal)
CPT/HCPCS: 71045; 99283-25